=== PATIENT | male | born 1960 ===

== ENCOUNTER 2022-11-22 08:55 | Outpatient (REF) | payer MEDICAID, SELFPAY ==
--- NOTE | 2022-11-22 11:47 | MHC.AU.HFU ---
Hearing Instrument Follow-Up- Binaural Date of Visit: 11/22/22 Right Ear: Phonak Janet P70-DE, [id number], black Repair Warranty: 02/22/2025 Loss and Damage Warranty: 02/22/2025 Battery Size: Rechargeable Zinc Miner Blasting: TRS lock tubing Type of Mold: half shell ear mold Dispensed By: Steve Russo Date of Fittin11/25/2021 Left Ear: Phonak Janet P70-DE, [id number], black Repair Warranty: 02/22/2025 Loss and Damage Warranty: 02/22/2025 Battery Size: Rechargeable Zinc Miner Blasting: TRS lock tubing Type of Mold: half shell ear mold Dispensed By: Steve Russo Date of Fittin11/25/2021 Follow-Up Summary: Yinka is here for a hearing evaluation and hearing aid check, accompanied by his sister. He is transferring his care from Steve Russo. See audiogram for report. Yinka states the left side port of his hearing aid plastics supervisor broke 4 months ago so he has been unable to charge or wear his left hearing aid. Visual inspection of the plastics supervisor confirms the left port is broken. I was able to charge the left hearing aid with the right side port enough to reprogram both aids. Reprogrammed right and left hearing aids to today's audiogram. Called [facility] and ordered replacement plastics supervisor under warranty. I also re-tubed the patient's ear molds as they were hardened. Our clinic will call the patient to pick up man the replacement plastics supervisor when it arrives at our clinic- no appointment necessary, no charge, in warranty. I showed Yinka and his sister how to use the right side port to charge both right and left hearing aids. Yinka should do this until the new plastics supervisor arrives. He indicated understanding. Yinka will return in 6 months for a hearing aid check/cleaning per request. Annual audiogram/check in 1 year pending PCP order. Diagnosis Code(s): Primary Diagnosis: H90.3 Bilateral Sensorineural Hearing Loss Signature: Provider: Annamarie Ordoñez, CCC-A
== END 2022-11-22 08:56 | disposition home or self-care (01) ==
LOC: HO.SH 08:55
PROVIDERS: Visit Provider Physician Assistant
DX: Z01.118 Encounter for examination of ears and hearing with other abnormal findings (principal); Z46.1 Encounter for fitting and adjustment of hearing aid; H90.3 Sensorineural hearing loss, bilateral
CPT/HCPCS: 92557; 92593

== ENCOUNTER 2022-11-28 15:23 | Outpatient (REF) | payer MEDICAID, SELFPAY | END 2022-11-28 15:24 | disposition home or self-care (01) | LOC: HO.HAP 15:23 | PROVIDERS: Visit Provider Physician Assistant | DX: Z13.89 Encounter for screening for other disorder (principal) ==

== ENCOUNTER 2023-04-17 07:43 | Inpatient (IN) | payer MEDICAID, SELFPAY ==
[2023-04-17] VITALS (8 sets, daily range): BP systolic 90–112; BP diastolic 42–58; PULSE 80–96; RESP 16–22; TEMP 36–36.8; O2SAT 94–100; BMI 36.2
--- NOTE | ~2023-04-17 | CT_ITS ---
EXAMINATION: CT ABDOMEN AND PELVIS WITHOUT CONTRAST CLINICAL INFORMATION: Pain and distention COMPARISON: None available. TECHNIQUE: Multidetector volumetric imaging was performed from the superior aspect of the liver through the pubic symphysis. Sagittal and coronal reformatted images were obtained on the technologist's workstation. This CT examination was performed using dose optimization techniques as appropriate, variously including the following: *Automated exposure control *Adjustment of mA and/or kV according to patient size (this includes techniques or standardized protocols for targeted exams where dose is matched to indication/reason for exam; i.e. extremities or head) *Use of iterative reconstruction technique DLP: 918 mGy-cm FINDINGS: LUNG BASES: The visualized lung bases are unremarkable. LIVER, GALLBLADDER, AND BILIARY TREE: Liver is of low attenuation due to hepatic steatosis without hepatic masses or ductal dilatation seen. The gallbladder is unremarkable with no evidence of radiopaque gallstones, gallbladder wall thickening, or obvious pericholecystic inflammatory changes. PANCREAS: Unremarkable. SPLEEN: Spleen is enlarged measured 14.5 cm. ADRENAL GLANDS: Unremarkable. KIDNEYS AND URETERS: There are punctate calculi seen in the lower poles of both kidneys without hydroureteronephrosis seen. There is mild perinephric stranding on the right and the left kidney revealed features of atrophy. BLADDER: Small calculi seen in the urinary bladder on the right with the largest measured 0.5 cm. GASTROINTESTINAL TRACT: There is reflux in the esophagus. Stomach is decompressed. Colonic loops are decompressed. There are no bowel small bowel obstruction or dilatation. There is large amount of fatty tissues in the abdomen with mesenteric haziness, nonspecific there is no mesenteric masses. ABDOMINAL WALL: There is fat-containing moderate-sized umbilical hernia. LYMPH NODES: Normal. VASCULAR: There are atherosclerotic calcifications in not dilated abdominal aorta PELVIC VISCERA: There is prominence of the prostate, measured 5.6 x 6.1 x 4.1 cm with a volume measured approximately 70 ML OSSEOUS STRUCTURES: Unremarkable. CT/CT abdomen pelvis wo IV con IMPRESSION: 1. Hepatic steatosis and splenomegaly. 2. Bilateral nephrolithiasis without hydroureteronephrosis. Atrophic left kidney 3. Small calculi in the urinary bladder. 4. Prostatic hypertrophy. 5. Fat-containing umbilical hernia. 6. Nonspecific mesenteric haziness and large amount of mesenteric fat deposition. Fleischner guidelines were followed.
--- NOTE | 2023-04-17 07:50 | ECG_ITS ---
Test Reason : chest pain Blood Pressure : / mmHG Vent. Rate : 086 BPM Atrial Rate : 086 BPM P-R Int : 190 ms QRS Dur : 112 ms QT Int : 372 ms P-R-T Axes : 048 053 004 degrees QTc Int : 445 ms Normal sinus rhythm Nonspecific ST abnormality Abnormal ECG No previous ECGs available Referred By: Jason Barba Electronically Signed By:Juan May
--- OUTSIDE RECORDS SUMMARY | 2023-04-17 08:14 | XMS_ITS | Continuity of Care Document ---
Author Name Unknown Organization [facility] Address [address] [place] [phone]- Care Team Providers Care Regulatory Administrator Name Role Phone Estephania Roach Primary Care Physician Encounter [facility] Date(s): 04/25/22 - 05/25/22 [facility] [address] [place] [id number]- Allergies, Adverse Reactions, Alerts No Known Medication Allergies Medications amLODIPine 10 mg oral tablet 10 mg, 1, tablet, By Mouth, Daily, Refills 0, Maintenance, 12/14/21 14:44:00 EST, Partial fill uponpatient request if the prescription is for a schedule II opioid drug. Start Date: 12/14/21 Status: Ordered aspirin 81 mg oral delayed release tablet 81 mg, 1, tablet, By Mouth, Daily, Refills 0, Maintenance, 12/14/21 14:44:00 EST, Partial fill uponpatient request if the prescription is for a schedule II opioid drug. Start Date: 12/14/21 Status: Ordered atorvastatin 80 mg oral tablet 1 tablet = 80 mg, By Mouth, Daily, 0 Refills, Maintenance, 12/14/21 14:45:00 EST, Partial fill uponpatient request if the prescription is for a schedule II opioid drug. Start Date: 12/14/21 Status: Ordered meloxicam 15 mg oral tablet 1 tablet = 15 mg, By Mouth, Daily, 0 Refills, Maintenance, 12/14/21 14:45:00 EST, Partial fill uponpatient request if the prescription is for a schedule II opioid drug. Start Date: 12/14/21 Status: Ordered metFORMIN 500 mg oral tablet 1 tablet = 500 mg, By Mouth, 2 times a day, 0 Refills, Maintenance, 12/14/21 14:45:00 EST, Partial fill upon patient request if the prescription is for a schedule II opioid drug. Start Date: 12/14/21 Status: Ordered Problem List Condition Effective Dates Status Health Status Inform ant Obese class II(Confirmed) Active
--- OUTSIDE RECORDS SUMMARY | 2023-04-17 08:14 | XMS_ITS | Continuity of Care Document ---
Author Name Unknown Organization [facility] Address [address] [place] [phone]- Care Team Providers Care Asset Analyst Name Role Phone Estephania Roach Primary Care Physician Encounter [facility] Date(s): 05/31/22 - 06/30/22 [facility] [address] [place] [phone]- Attending Physician: Daisy Henriquez Admitting Physician: AdmDaisy obando Referring Physician: AdmtrDaisy Allergies, Adverse Reactions, Alerts No Known Medication [...]
--- OUTSIDE RECORDS SUMMARY | 2023-04-17 08:14 | XMS_ITS | Continuity of Care Document ---
Author Name Unknown Organization [facility] Address [address] [place] [phone]- Care Team Providers Care Grass Farm Laborer Name Role Phone Estephania Roach Primary Care Physician [facility] [id number] Date(s): 04/29/22 - 05/29/22 [facility] [address] [place] [id number] Attending Physician: Daisy Henriquez Admitting Physician: AdmDaisy [...]
--- OUTSIDE RECORDS SUMMARY | 2023-04-17 08:14 | XMS_ITS | Continuity of Care Document ---
Author Name Unknown Organization [facility] Address [address] [place] [phone]- Care Team Providers Care Wood And Wood Products Factory Worker Name Role Phone Estephania Roach Primary Care Physician Encounter [facility] [place] Date(s): 12/08/21 - 01/07/22 [facility] [address] [place] [phone]- Allergies, Adverse Reactions, Alerts No Known Medication [...]
--- OUTSIDE RECORDS SUMMARY | 2023-04-17 08:14 | XMS_ITS | Continuity of Care Document ---
Author Name Unknown Organization [facility] Address [address] [place] [phone]- Care Team Providers Care Pie Maker Name Role Phone Estephania Roach Primary Care Physician Encounter [facility] [place] [facility] Date(s): 05/31/22 - 06/07/22 [facility] [address] [place] [phone]- Attending Physician: Jean Bolden MD Admitting Physician: Jean Bolden MD Referring Physician: Estephania Roach Allergies, Adverse Reactions, Alerts No Known Medication [...] Status Inform ant Obese class II(Confirmed) Active Vital Signs Most recent to oldest [Reference Range]: 1 Height 172.00 cm (05/31/22 12:20 PM) Weight 109.32 kg (05/31/22 12:20 PM) Oxygen Saturation [94-100 %] 98 % (05/31/22 12:20 PM) Pulse Rate [55-90 bpm] 81 bpm (05/31/22 12:20 PM) Body Mass Index [18.5-24.99] 36.95 *>HHI* (05/31/22 12:20 PM) Blood Pressure [90-138/55-84 mm Hg] 142/ 68mm Hg *H* (05/31/22 12:20 PM) Mode of Delivery (Oxygen) Room air (05/31/22 12:20 PM) Blood pressure sites Arm, right (05/31/22 12:20 PM) Dry Weight 109.32 kg (05/31/22 12:20 PM) Weight Obtained Via Patient/family state d (05/31/22 12:20 PM) Dry Weight Obtained Via Patient/family s tated (05/31/22 12:20 PM)
--- OUTSIDE RECORDS SUMMARY | 2023-04-17 08:14 | XMS_ITS | Continuity of Care Document ---
Author Name Unknown Organization [facility] Address [address] [place] [address]- Care Team Providers Care Choral Director Name Role Phone Estephania Roach Primary Care Physician Encounter [facility] [place] Date(s): 02/28/22 - 03/30/22 [facility] [address] [place] [address]- Attending Physician: Daisy Henriquez Admitting Physician: Daisy Henriquez Referring Physician: AdmtrDaisy Allergies, Adverse Reactions, Alerts [...]
[2023-04-17 08:21] LABS: MANUAL DIFF FLAG NO
[2023-04-17 08:28] LABS: Prothrombin Time 11.9 SEC (10.0-13.1)
[2023-04-17 08:29] LABS: Basophils Percent Auto 0.1 % (0-2); Hematocrit 33.3 % (42.0-52.0); Imm Gran Abs Auto 0.21 X10*3/uL (0.00-0.03); Imm Gran Pct Auto 1.9 % (0.0-0.4); Lymphocytes Absolute Auto 0.5 X10*3/uL (1.2-4.9); Lymphocytes Percent Auto 4.5 % (20-40); Mean Corpuscular Hemoglobin 34.2 pg (27.0-33.0); Mean Corpuscular Volume 103.4 fL (80.0-98.0); Mean Platelet Volume 9.8 fL (9.4-12.4); Monocytes Absolute Auto 0.6 X10*3/uL (0.1-1.2); Monocytes Percent Auto 5.1 % (2-11); Neutrophils Absolute Auto 9.6 x10*3/uL (2.0-8.3); Neutrophils Percent Auto 88.4 % (45-73); Platelet Count 228 X10*3/uL (160-400); Red Blood Count 3.22 X10*6/uL (4.60-5.80); White Blood Count 10.9 X10*3/uL (4.8-10.8)
[2023-04-17 08:31] LABS: Partial Thromboplastin Time 26.6 SEC (26.0-36.4)
[2023-04-17] MEDS: Famotidine/PF 20 MG/2 ML VIAL IVPUSH (08:39)
[2023-04-17] MEDS: ondansetron HCL 4 MG/2 ML VIAL IVPUSH (08:39)
[2023-04-17] MEDS: 0.9 % Sodium Chloride 1,000 ML 999 ML IV ×2 (08:40→09:35)
[2023-04-17 08:55] LABS: Alanine Aminotransferase 49 U/L (0-40); Albumin Level 3.3 g/dL (3.5-5.0); Alkaline Phosphatase 77 U/L (39-117); Aspartate Amino Transferase 32 U/L (5-37); Bilirubin Total 0.4 mg/dL (0.0-1.0); Calcium 8.2 mg/dL (8.4-10.2); Ethanol < 10 mg/dL; Glucose Random 137 mg/dL (60-115); Total Protein 6.2 g/dL (6.5-8.0)
[2023-04-17 08:59] LABS: Ammonia 14 umol/L (13-55)
[2023-04-17 09:10] LABS: TSH reflex Free T4 1.38 uIU/mL (0.32-4.0)
[2023-04-17 09:11] LABS: Anion Gap 23 (12-20); Blood Urea Nitrogen > 125 mg/dL (9-16); Carbon Dioxide 10 mmol/L (22-29); Chloride 110 mmol/L (96-108); Creatinine Clr Calc Pharmacy 9.7; Estimated Glomerular Filt Rate 6; Potassium 6.4 mmol/L (3.3-5.1); Sodium 137 mmol/L (135-145)
[2023-04-17] MEDS: Albuterol Sulfate (0.083%) 2.5 MG/3 ML VIAL.NEB 10 MG INHALE (09:25)
[2023-04-17] MEDS: Sodium Bicarbonate 8.4% 50 MEQ/50 ML SYRINGE 100 MEQ IVPUSH (09:26)
[2023-04-17] MEDS: Calcium Gluconate/NaCl,Iso-Osm 1 GM/50 ML PLAST..BAG IV (09:27)
[2023-04-17] MEDS: Insulin Regular, Human 100 UNIT/ML 3 ML VIAL 10 UNIT IVPUSH (09:27)
--- NOTE | 2023-04-17 10:11 | ED.GENADULT ---
HPI - General Adult General Chief complaint: Nausea/Vomiting/Diarrhea Stated complaint: WEAK,DIARRHEA X10 DAYS SINCE VACATION PER EMS Time Seen by Provider: 04/17/23 07:45 Source: patient and EMS Mode of arrival: EMS Limitations: no limitations History of Present Illness HPI narrative: 63-year-old male with history of diabetes presents with nausea, vomiting and diarrhea for period of 10 days. Patient recently returned from a trip to [place]. Over the course of his trip, he has not had any oral intake, he has had nausea, vomiting diarrhea. He denies any significant abdominal pain. Denies any fevers or chills. Describes symptoms as severe. Patient right back last night. called EMS today. Patient feels generally weak and fatigued. There is no clear relieving or exacerbating features. Patient has never had symptoms like this before. Related Data Home Medications Medication Instructions Recorded Confirmed amlodipine 10 mg tablet 10 mg PO DAILY 04/17/23 04/17/23 aspirin 81 mg tablet,delayed 81 mg PO DAILY 04/17/23 04/17/23 release atorvastatin 80 mg tablet 80 mg PO DAILY 04/17/23 04/17/23 folic acid 1 mg tablet 2 mg PO DAILY 04/17/23 04/17/23 hydrochlorothiazide 25 mg tablet 25 mg PO DAILY 04/17/23 04/17/23 hydroxychloroquine 200 mg tablet 400 mg PO DAILY 04/17/23 04/17/23 lisinopril 20 mg tablet 20 mg PO DAILY 04/17/23 04/17/23 metformin 1,000 mg tablet 1,000 mg PO BID 04/17/23 04/17/23 methotrexate sodium 2.5 mg tablet 17.5 mg PO MO@1900 04/17/23 04/17/23 Allergies Allergy/AdvReac Type Severity Reaction Status Date / Time No Known Allergies Allergy Verified 04/17/23 08:23 Review of Systems Review of Systems: CONSTITUTIONAL: Denies weight loss, fever and chills. HEENT: Denies changes in vision and hearing. RESPIRATORY: Denies SOB and cough. CV: Denies palpitations no CP. GI: Positive abdominal pain, nausea, vomiting and diarrhea. : Denies dysuria and urinary frequency. MSK: Denies myalgia and joint pain. SKIN: Denies rash and pruritus. NEUROLOGICAL: Denies headache and syncope. PSYCHIATRIC: Denies recent changes in mood. Denies anxiety and depression. All other ROS are negative [facility] Social History Social History Advance Directives: No Advance Directives Information Provided: No Physical Exam ED Vital Signs: Vital Signs - 24 hr 04/17/23 07:52 04/17/23 09:33 04/17/23 10:00 Temperature 98.3 F Pulse Rate 87 81 89 Respiratory Rate 16 18 22 H Blood Pressure 97/48 L 104/42 L Pulse Oximetry 94 Oxygen Delivery Method Room Air Room Air BMI result Body Mass Index 36.2 GEN: Well developed, no acute distress, alert, oriented HEENT: Normocephalic, atraumatic, normal external ears, nose appears normal, no oropharyngeal edema or exudates Eyes: Normal to appearance Neck: Supple, no lymphadenopathy Respiratory: Talks in complete sentences, no respiratory distress, clear to auscultation bilaterally Cardiovascular: Regular rate and rhythm, no murmurs rubs or gallops Abdomen: Soft, nontender, nondistended, no guarding, no rebound Back: No CVA tenderness Extremities: No clubbing cyanosis or edema Neurologic: No focal neurologic deficits, cranial nerves 2-12 intact, strength is 5/5 bilaterally, tremulous Skin: No rash Course Course Course Narrative: 63-year-old male with history of diabetes presents with nausea, vomiting and diarrhea. Labs this point of demonstrated acute kidney injury with hyperkalemia. Patient is being fluid resuscitated. Patient is likely prerenal based on his BUN to creatinine ratio. In addition, for the hyperkalemia, or treating with sodium bicarbonate, insulin, dextrose, albuterol, calcium gluconate. I am contacting Nephrology at this point. Patient has CT scan of the abdomen. His abdomen was not significantly tender but given his presentation, would like to rule out other etiologies for his renal failure. Patient will obviously need admission to the hospital. Reevaluation(s) Reevaluation #1: Spoke with Dr. Portillo, nephrology. Patient is stable. Patient likely be admitted to the telemetry unit. We are waiting on CT scan results. Appears his left kidney is atrophic. But there are no other acute abdominal findings on preliminary review by myself. I spoke with patient's sister. She reports history of CVA and some delayed thought. We do not have D50. Patient will be switched to D10 at 150 mL bolus prior to insulin administration for hyperkalemia. [facility] Time: 10:34 Reevaluation #2: Spoke with Dr. Portillo who evaluated the patient. Patient will have a lactic acid repeat metabolic panel. Patient may require emergent dialysis especially since he is on metformin. Will contact the hospitalist for admission. Time: 12:46 Medications Administered Generic Name Dose Route Start Last Admin Trade Name Freq PRN Reason Stop Dose Admin Sodium Bicarbonate 150 meq/ 1,000 mls @ 50 mls/hr 04/17/23 10:30 04/17/23 11:11 Dextrose IV 50 mls/hr .Q20H JAIDEN Administration Dextrose 1,000 mls @ 250 mls/hr 04/17/23 10:32 04/17/23 10:42 D10 IV 04/17/23 14:31 250 mls/hr .Q4H ONE Administration Discontinued Medications Generic Name Dose Route Start Last Admin Trade Name Freq PRN Reason Stop Dose Admin Albuterol Sulfate 10 mg 04/17/23 09:10 04/17/23 09:25 Albuterol Sulfate (0.083%) 2.5 Mg/3 Ml Vial.Neb INHALE 04/17/23 09:11 10 mg ONCE ONE Administration Dextrose 50 gm 04/17/23 09:11 04/17/23 10:23 Dextrose 25 % 2.5 Gm/10 Ml Syringe IVPUSH 04/17/23 09:12 Not Given ONCE ONE Famotidine 20 mg 04/17/23 07:50 04/17/23 08:39 Famotidine/Pf 20 Mg/2 Ml Vial IVPUSH 04/17/23 07:51 20 mg ONCE ONE Administration Sodium Chloride 1,000 mls @ 999 mls/hr 04/17/23 08:00 04/17/23 10:27 Ns IV 04/17/23 09:00 Infused .Q1H1M JAIDEN Infusion Calcium Gluconate 1 gm in 50 mls @ 50 mls/hr 04/17/23 09:10 04/17/23 10:27 Calcium Gluconate IV 04/17/23 10:09 Infused ONCE ONE Infusion Sodium Chloride 1,000 mls @ 999 mls/hr 04/17/23 09:15 04/17/23 11:44 Ns IV 04/17/23 10:15 Infused .Q1H1M JAIDEN Infusion Insulin Human Regular 10 unit 04/17/23 09:10 04/17/23 09:27 Insulin Regular, Human 100 Unit/Ml 3 Ml Vial IVPUSH 04/17/23 09:11 10 unit ONCE ONE Administration Ondansetron HCl 4 mg 04/17/23 07:50 04/17/23 08:39 Ondansetron Hcl 4 Mg/2 Ml Vial IVPUSH 04/17/23 07:51 4 mg ONCE ONE Administration Sodium Bicarbonate 100 meq 04/17/23 09:15 04/17/23 10:24 Sodium Bicarbonate 8.4% 50 Meq/50 Ml Syringe IVPUSH 04/17/23 09:21 Not Given Q5M JAIDEN Sodium Zirconium Cyclosilicate 10 gm 04/17/23 10:22 04/17/23 10:41 Sodium Zirconium Cyclosilicate 10 Gm Powd.Pack PO 04/17/23 10:23 10 gm ONCE ONE Administration Medical Decision Making Medical Decision Making MDM Narrative: 63-year-old male with diabetes presents with nausea, vomiting, diarrhea. Symptoms several days has had poor oral intake. Patient appears slightly confused but alert and oriented. Tremulousness. Abdomen was very mildly tender but no rebound or guarding. Will provide the patient with IV fluids, antiemetics at this point. Will add like to get a stool sample if he needs to pass stool. Would like to rule out significant electrolyte abnormality. Differential diagnosis could include gastroenteritis, dehydration, electrolyte abnormality, renal dysfunction, dysmotility, IBS, IBD. Differential Diagnosis Differential Diagnoses: The differential diagnosis associated with the presentation includes (See above) Admission/Observation Consideration of admission/observation: Escalation of care including admission/observation considered Consult Healthcare Provider Management of the patient was discussed with: Residential Solar Consultant Lab Data [facility] Lab Attestation statement: I reviewed the patient's lab results. 04/17/23 08:16 04/17/23 08:16 Labs: Lab Results 04/17/23 04/17/23 04/17/23 Range/Units 08:16 08:16 08:16 WBC 10.9 H (4.8-10.8) X10*3/uL RBC 3.22 L (4.60-5.80) X10*6/uL Hgb 11.0 L (14.0-18.0) g/dl Hct 33.3 L (42.0-52.0) % MCV 103.4 H (80.0-98.0) fL MCH 34.2 H (27.0-33.0) pg MCHC 33.0 (31.0-36.0) g/dl RDW 13.0 (11.0-16.0) % Plt Count 228 (160-400) X10*3/uL MPV 9.8 (9.4-12.4) fL Immature Gran % (Auto) 1.9 H (0.0-0.4) % Neut % (Auto) 88.4 H (45-73) % Lymph % (Auto) 4.5 L (20-40) % [place] % (Auto) 5.1 (2-11) % Eos % (Auto) 0.0 (0-4) % Baso % (Auto) 0.1 (0-2) % Lymph # (Auto) 0.5 L (1.2-4.9) X10*3/uL [place] # (Auto) 0.6 (0.1-1.2) X10*3/uL Eos # (Auto) 0.0 (0.0-0.4) X10*3/uL Baso # (Auto) 0.0 (0.0-0.2) X10*3/uL Abs Immat Gran (auto) 0.21 H (0.00-0.03) X10*3/uL Absolute Neuts (auto) 9.6 H (2.0-8.3) x10*3/uL Absolute Nucleated RBC 0.000 (0.0-0.012) X10*3/uL Nucleated RBC % (auto) 0.0 (0.0-0.2) /100WBC PT (10.0-13.1) SEC INR (0.9-1.1) APTT (26.0-36.4) SEC Sodium 137 (135-145) mmol/L Potassium 6.4 H* (3.3-5.1) mmol/L Chloride 110 H (96-108) mmol/L Carbon Dioxide 10 L* (22-29) mmol/L Anion Gap 23 H (12-20) BUN > 125 H (9-16) mg/dL Creatinine 9.40 H* (0.5-1.4) mg/dL Estim Creat Clear Calc 9.7 Estimated GFR 6 Random Glucose 137 H (60-115) mg/dL Lactic Acid (0.5-2.0) mmol/L Calcium 8.2 L (8.4-10.2) mg/dL Total Bilirubin 0.4 (0.0-1.0) mg/dL AST 32 (5-37) U/L ALT 49 H (0-40) U/L Alkaline Phosphatase 77 (39-117) U/L Ammonia Cancelled Total Protein 6.2 L (6.5-8.0) g/dL Albumin 3.3 L (3.5-5.0) g/dL TSH (0.32-4.0) uIU/mL Ethyl Alcohol < 10 mg/dL 04/17/23 04/17/23 04/17/23 Range/Units 08:16 08:16 08:37 WBC (4.8-10.8) X10*3/uL RBC (4.60-5.80) X10*6/uL Hgb (14.0-18.0) g/dl Hct (42.0-52.0) % MCV (80.0-98.0) fL MCH (27.0-33.0) pg MCHC (31.0-36.0) g/dl RDW (11.0-16.0) % Plt Count (160-400) X10*3/uL MPV (9.4-12.4) fL Immature Gran % (Auto) (0.0-0.4) % Neut % (Auto) (45-73) % Lymph % (Auto) (20-40) % [place] % (Auto) (2-11) % Eos % (Auto) (0-4) % Baso % (Auto) (0-2) % Lymph # (Auto) (1.2-4.9) X10*3/uL [place] # (Auto) (0.1-1.2) X10*3/uL Eos # (Auto) (0.0-0.4) X10*3/uL Baso # (Auto) (0.0-0.2) X10*3/uL Abs Immat Gran (auto) (0.00-0.03) X10*3/uL Absolute Neuts (auto) (2.0-8.3) x10*3/uL Absolute Nucleated RBC (0.0-0.012) X10*3/uL Nucleated RBC % (auto) (0.0-0.2) /100WBC PT 11.9 (10.0-13.1) SEC INR 1.0 (0.9-1.1) APTT 26.6 (26.0-36.4) SEC Sodium (135-145) mmol/L Potassium (3.3-5.1) mmol/L Chloride (96-108) mmol/L Carbon Dioxide (22-29) mmol/L Anion Gap (12-20) BUN (9-16) mg/dL Creatinine (0.5-1.4) mg/dL Estim Creat Clear Calc Estimated GFR Random Glucose (60-115) mg/dL Lactic Acid (0.5-2.0) mmol/L Calcium (8.4-10.2) mg/dL Total Bilirubin (0.0-1.0) mg/dL AST (5-37) U/L ALT (0-40) U/L Alkaline Phosphatase (39-117) U/L Ammonia 14 Total Protein (6.5-8.0) g/dL Albumin (3.5-5.0) g/dL TSH 1.38 (0.32-4.0) uIU/mL Ethyl Alcohol mg/dL 04/17/23 Range/Units 12:49 WBC (4.8-10.8) X10*3/uL RBC (4.60-5.80) X10*6/uL Hgb (14.0-18.0) g/dl Hct (42.0-52.0) % MCV (80.0-98.0) fL MCH (27.0-33.0) pg MCHC (31.0-36.0) g/dl RDW (11.0-16.0) % Plt Count (160-400) X10*3/uL MPV (9.4-12.4) fL Immature Gran % (Auto) (0.0-0.4) % Neut % (Auto) (45-73) % Lymph % (Auto) (20-40) % [place] % (Auto) (2-11) % Eos % (Auto) (0-4) % Baso % (Auto) (0-2) % Lymph # (Auto) (1.2-4.9) X10*3/uL [place] # (Auto) (0.1-1.2) X10*3/uL Eos # (Auto) (0.0-0.4) X10*3/uL Baso # (Auto) (0.0-0.2) X10*3/uL Abs Immat Gran (auto) (0.00-0.03) X10*3/uL Absolute Neuts (auto) (2.0-8.3) x10*3/uL Absolute Nucleated RBC (0.0-0.012) X10*3/uL Nucleated RBC % (auto) (0.0-0.2) /100WBC PT (10.0-13.1) SEC INR (0.9-1.1) APTT (26.0-36.4) SEC Sodium (135-145) mmol/L Potassium (3.3-5.1) mmol/L Chloride (96-108) mmol/L Carbon Dioxide (22-29) mmol/L Anion Gap (12-20) BUN (9-16) mg/dL Creatinine (0.5-1.4) mg/dL Estim Creat Clear Calc Estimated GFR Random Glucose (60-115) mg/dL Lactic Acid 0.7 (0.5-2.0) mmol/L Calcium (8.4-10.2) mg/dL Total Bilirubin (0.0-1.0) mg/dL AST (5-37) U/L ALT (0-40) U/L Alkaline Phosphatase (39-117) U/L Ammonia Total Protein (6.5-8.0) g/dL Albumin (3.5-5.0) g/dL TSH (0.32-4.0) uIU/mL Ethyl Alcohol mg/dL Independent Interpretation I performed an independent interpretation of an: EKG (Normal sinus rhythm heart rate 86, no acute ST elevations depressions, nonspecific T-wave abnormality) and CT Scan Independent Historian Clinical information obtained from an independent historian. History obtained from or confirmed by: EMS and Other (Sister) Tests considered The following testing was considered but not selected: Ultrasound kidneys Prescription Management I considered prescription management with: Antibiotic Chronic Conditions Patient?s care impacted by: Diabetes and Hypertension Critical Care Time Critical Care Time Critical Care Time: Yes Total Critical Care Time: 65 Attestation: Approximately 65 minutes of critical care time performed frequent bedside assessments, reassessments, management of acute potentially life-threatening medical conditions, documentation, review medical data, consultation with other providers all outside medical procedures. Discharge Plan Discharge Clinical Impression: GERRY (acute kidney injury), Acute hyperkalemia, Nausea vomiting and diarrhea, Anemia, macrocytic Patient Disposition: Admitted As Inpatient
--- NOTE | 2023-04-17 10:24 | PHA.MEDREC ---
Pharmacy Consult ? Medication Reconciliation Pharmacy has completed the medication reconciliation. spoke with patient's sister, Nayana. She had a list and confirmed all of his medications. She reported that the methotrexate is given to him on Monday's after dinner (not given today). She also mentioned that the lisinopril got decreased to 20mg.
[2023-04-17] MEDS: Sodium Zirconium Cyclosilicate 10 GM POWD.PACK PO (10:41)
[2023-04-17] MEDS: Dextrose 10 % 1,000 ML 250 ML IV (10:42)
[2023-04-17] MEDS: Sodium Bicarbonate 8.4% 150 MEQ in Dextrose 5 % 850 ML 50 MEQ IV (11:11)
--- NOTE | 2023-04-17 12:15 | MHC.CM.ED ---
Received notification from Kristen of registration that patient wanted to complete a HCP. T/W attempted to meet with patient to complete this. Patient currently sleeping. Will attempt to meet again. Continue to monitor for d/c needs.
--- NOTE | 2023-04-17 12:55 | PC.NURSE ---
clemens catheter in place. clear yellow urine draining. NSR on the monitor. patient denies abd pain at this time. call anderson placed within reach. wctm.
[2023-04-17 13:14] LABS: Lactic Acid 0.7 mmol/L (0.5-2.0)
[2023-04-17 13:54] LABS: Osmolality, Serum 339 mosm/kg (281-305)
[2023-04-17 14:11] LABS: Anion Gap 20 (12-20); Blood Urea Nitrogen 157 mg/dL (9-16); Calcium 7.5 mg/dL (8.4-10.2); Carbon Dioxide 12 mmol/L (22-29); Chloride 113 mmol/L (96-108); Creatinine Clr Calc Pharmacy 10.6; Estimated Glomerular Filt Rate 6; Glucose Random 116 mg/dL (60-115); Magnesium 1.8 mg/dL (1.6-2.6); Potassium 5.3 mmol/L (3.3-5.1); Sodium 140 mmol/L (135-145)
[2023-04-17 14:16] LABS: Appearance Urine Cloudy; Color Urine Yellow; Glucose Urine UA Negative (Negative); Leukocyte Esterase Urine Moderate (2+) (Negative); Nitrite Urine Negative (Negative); Specific Gravity - Urine 1.015 (1.005-1.025); UMIC TRIGGER UACC YES; Urine Blood Moderate (2+) (Negative); Urine Ketones Negative (Negative); Urine Protein 30 (1+) mg/dL (Neg-Trace)
[2023-04-17 14:25] LABS: Bacteria Urine 1+ (None Seen); UACC Culture Trigger YES; WBC Urine 21-50 /HPF (0-5)
--- NOTE | 2023-04-17 14:25 | PM.IMHP ---
History of Present Illness Date of Service: 04/17/23 Attending physician on admission: Jaime Simeon Chief Complaint: anorexia, diarrhea 63 year old male with history of RA on hydroxychloroquine and methotrexate, non insulin dependent type 2 diabetes, htn, hld, and history CVA presented to ED for evaluation of nausea, diarrhea and anorexia ongoing for about 10 days. Pt was recently in [place] for 7 days followed by a cruise around [place] and returned last night. Was seen on the ship was was told he had sea sickness . Has not been able to tolerate much orally since symptom onset. Has no vomiting but does endorse dry heaves. Admits to copious diarrhea now with BRBPR. No melena. There is diffuse abdominal discomfort. No fevers or chills. None of those who were with him on the trip have similar symptoms. On arrival, blood pressures soft, vitals otherwise stable. Ny hypotension. Mild leukocytosis 10.9. H/H 11.0/33.3%. Creat 9.40, DUN >125, K 6.4, Cl 110, bicarb 10, AG 123. Treated with IV bicarb and 2L IVF. He also received 10 units regular insulin with D10, calcium gluconate, and albuterol for the hyperkalemia. Repeat chemistry showed improvement in creat to 8.53, BUN still elevated at 157, K improved to 5.3, hyperchloremic at 113, Na 140. AG closed. CT abd/pelvis showing hepatic steatosis and splenomegaly, bilateral nephrolithiasis without hydroureternephrosis and atrophic left kidney and nonspecific mesenteric haziness and large amt mesenteric fat disposition among other chronic findings. Initially concern for metformin poisoning per nephrology, but lactic acid 0.7. Review of Systems Review of Systems: General: No fevers, malaise, unintentional weight loss HEENT: No blurred vision, diplopia. No sore throat, nasal congestion, rhinorrhea, sinus pain, ear pain Cardiovascular: No chest pain, palpitations, or leg edema Respiratory: No shortness of breath, wheezing, cough GI: +abd pain, +n/d, +dry heaves, +BRBPR. No constipation, melena : No dysuria, hematuria, increased urinary frequency, decreased urinary output MSK: No myalgia, back pain Neuro: No headaches, weakness, paresthesias Skin: No rashes or lesions [facility] Medical History HLD (hyperlipidemia) HTN (hypertension) Rheumatoid arthritis Type 2 diabetes mellitus Social History (Updated 04/17/23 @ 14:48 by VIRGINIA Wong) Household Members: Family Household Members Other:: LIVES WITH SISTER Housing: House Do you presently have visiting nurse or other home services: No (pt states sister helps him) Alcohol intake: never Patient Tobacco Use Status: Never used Tobacco Smoked in Last 30 Days: No Use of substances other than those prescribed or required for medical reasons: No Currently Displaying Signs/Symptoms of Drug Intoxication Withdrawal: No Have you been hit, kicked, punched, or otherwise hurt by someone within the past year? If so, by whom?: No Do you feel safe in your current relationship?: No Current Relationship Is there a partner from a previous relationship who is making you feel unsafe now?: No Are you made to feel afraid or neglected: No Advance Directives: No Advance Directives Information Provided: No Do you have thoughts of harming others: None Do you have a plan to hurt others: No Plan Recently lost weight without trying: No Nutrition Risks: No Nutritional Risk service: No Current occupational status: retired Meds Allergies Allergy/AdvReac Type Severity Reaction Status Date / Time No Known Allergies Allergy Verified 04/17/23 08:23 Active Medications: Current Medications Acetaminophen (Acetaminophen 325 Mg Tablet) 650 mg PO Q6H PRN PRN Reason: Pain, Mild (Pain Scale 1-3) Aspirin (Aspirin Enteric Coated 81 Mg Tablet.Dr) 81 mg PO DAILY [facility] Atorvastatin Calcium (Atorvastatin Calcium 80 Mg Tablet) 80 mg PO DAILY [facility] Docusate Sodium (Docusate Sodium 100 Mg Capsule) 100 mg PO DAILY PRN PRN Reason: Constipation Folic Acid (Folic Acid 1 Mg Tablet) 2 mg PO DAILY [facility] Heparin Sodium (Porcine) (Heparin Sodium,Porcine 5,000 Unit/Ml Vial) 5,000 unit SUBCUT Q12H [facility] Hydroxychloroquine Sulfate (Hydroxychloroquine Sulfate 200 Mg Tablet) 400 mg PO DAILY [facility] Sodium Bicarbonate 150 meq/ (Dextrose) 1,000 mls @ 50 mls/hr IV .Q20H JAIDEN Last Admin: 04/17/23 11:11 Dose: 50 mls/hr Dextrose (D10) 1,000 mls @ 250 mls/hr IV .Q4H ONE Stop: 04/17/23 14:31 Last Admin: 04/17/23 10:42 Dose: 250 mls/hr Sodium Chloride (Ns) 1,000 mls @ 125 mls/hr IVCONT .Q8H JAIDEN Sodium Chloride (Ns) 1,000 mls @ 999 mls/hr IV .Q1H1M JAIDEN Stop: 04/17/23 15:15 Ondansetron HCl (Ondansetron Hcl 4 Mg/2 Ml Vial) 4 mg IVPUSH Q8H PRN PRN Reason: Nausea and Vomiting Pharmacy Consult (Consult Rx Perform Med Rec) 1 each MISCELLANE ONCE PRN PRN Reason: Consult order Sodium Chloride (0.9 % Sodium Chloride Flush 3 Ml Syringe) 3 ml IVFLUSH QSHIFT [facility] Home Medications Medication Instructions Recorded Confirmed Last Taken Type amlodipine 10 mg tablet 10 mg PO DAILY 04/17/23 04/17/23 04/16/23 History aspirin 81 mg tablet,delayed 81 mg PO DAILY 04/17/23 04/17/23 04/16/23 History release atorvastatin 80 mg tablet 80 mg PO DAILY 04/17/23 04/17/23 04/16/23 History folic acid 1 mg tablet 2 mg PO DAILY 04/17/23 04/17/23 04/16/23 History hydrochlorothiazide 25 mg tablet 25 mg PO DAILY 04/17/23 04/17/23 04/16/23 History hydroxychloroquine 200 mg tablet 400 mg PO DAILY 04/17/23 04/17/23 04/16/23 History lisinopril 20 mg tablet 20 mg PO DAILY 04/17/23 04/17/23 04/16/23 History metformin 1,000 mg tablet 1,000 mg PO BID 04/17/23 04/17/23 04/16/23 History methotrexate sodium 2.5 mg tablet 17.5 mg PO MO@1900 04/17/23 04/17/23 Unknown History Physical Exam Vital Signs and Narrative: Vital Signs: Last Vital Signs Temp 98.3 F 04/17/23 07:52 Pulse 96 04/17/23 14:00 Resp 18 04/17/23 14:00 BP 95/45 L 04/17/23 14:00 Pulse Ox 94 04/17/23 14:00 O2 Del Method Room Air 04/17/23 14:00 BMI result Body Mass Index 36.2 Constitutional - Awake and Alert, No apparent distress Eyes - PERRLA, EOMI Cardiovascular - S1S2, RRR, No edema Respiratory - Normal lung expansion, Normal respiratory effort, No respiratory distress, CTA bilaterally Gastrointestinal - small reducible umbilical hernia. llq ttp without guarding or rebound. ND; +BS - No CVA tenderness, clemens catheter in place draining yellow urine Extremities - no calf tenderness bilaterally, no swelling Musculoskeletal - Normal inspection, normal ROM Skin - Warm/Dry Neurological - Alert & oriented x3 but slightly confused, CN II-XII in tact, 5/5 strength BUE and BLE, tremulous Psychological - Appropriate affect Results Labs 04/17/23 08:16 04/17/23 12:49 Labs: Laboratory Results - last 24 hr 04/17/23 04/17/23 04/17/23 08:16 08:16 08:16 MCV 103.4 H MCH 34.2 H MCHC 33.0 RDW 13.0 Plt Count 228 MPV 9.8 Immature Gran % (Auto) 1.9 H Neut % (Auto) 88.4 H Lymph % (Auto) 4.5 L [place] % (Auto) 5.1 Eos % (Auto) 0.0 Baso % (Auto) 0.1 Lymph # (Auto) 0.5 L [place] # (Auto) 0.6 Eos # (Auto) 0.0 Baso # (Auto) 0.0 Abs Immat Gran (auto) 0.21 H Absolute Neuts (auto) 9.6 H Absolute Nucleated RBC 0.000 Nucleated RBC % (auto) 0.0 PT INR APTT Anion Gap 23 H Estim Creat Clear Calc 9.7 Estimated GFR 6 Random Glucose 137 H Osmolality Lactic Acid Calcium 8.2 L Magnesium Total Bilirubin 0.4 AST 32 ALT 49 H Alkaline Phosphatase 77 Ammonia Cancelled Total Protein 6.2 L Albumin 3.3 L TSH Urine Color Urine Appearance Urine pH Ur Specific [place] Urine Protein Urine Glucose (UA) Urine Ketones Urine Blood Urine Nitrite Ur Leukocyte Esterase Ethyl Alcohol < 10 04/17/23 04/17/23 04/17/23 08:16 08:16 08:37 MCV MCH MCHC RDW Plt Count MPV Immature Gran % (Auto) Neut % (Auto) Lymph % (Auto) [place] % (Auto) Eos % (Auto) Baso % (Auto) Lymph # (Auto) [place] # (Auto) Eos # (Auto) Baso # (Auto) Abs Immat Gran (auto) Absolute Neuts (auto) Absolute Nucleated RBC Nucleated RBC % (auto) PT 11.9 INR 1.0 APTT 26.6 Anion Gap Estim Creat Clear Calc Estimated GFR Random Glucose Osmolality Lactic Acid Calcium Magnesium Total Bilirubin AST ALT Alkaline Phosphatase Ammonia 14 Total Protein Albumin TSH 1.38 Urine Color Urine Appearance Urine pH Ur Specific [place] Urine Protein Urine Glucose (UA) Urine Ketones Urine Blood Urine Nitrite Ur Leukocyte Esterase Ethyl Alcohol 04/17/23 04/17/23 04/17/23 12:49 12:49 12:49 MCV MCH MCHC RDW Plt Count MPV Immature Gran % (Auto) Neut % (Auto) Lymph % (Auto) [place] % (Auto) Eos % (Auto) Baso % (Auto) Lymph # (Auto) [place] # (Auto) Eos # (Auto) Baso # (Auto) Abs Immat Gran (auto) Absolute Neuts (auto) Absolute Nucleated RBC Nucleated RBC % (auto) PT INR APTT Anion Gap 20 Estim Creat Clear Calc 10.6 Estimated GFR 6 Random Glucose 116 H Osmolality 339 H Lactic Acid 0.7 Calcium 7.5 L D Magnesium 1.8 Total Bilirubin AST ALT Alkaline Phosphatase Ammonia Total Protein Albumin TSH Urine Color Urine Appearance Urine pH Ur Specific [place] Urine Protein Urine Glucose (UA) Urine Ketones Urine Blood Urine Nitrite Ur Leukocyte Esterase Ethyl Alcohol 04/17/23 14:03 MCV MCH MCHC RDW Plt Count MPV Immature Gran % (Auto) Neut % (Auto) Lymph % (Auto) [place] % (Auto) Eos % (Auto) Baso % (Auto) Lymph # (Auto) [place] # (Auto) Eos # (Auto) Baso # (Auto) Abs Immat Gran (auto) Absolute Neuts (auto) Absolute Nucleated RBC Nucleated RBC % (auto) PT INR APTT Anion Gap Estim Creat Clear Calc Estimated GFR Random Glucose Osmolality Lactic Acid Calcium Magnesium Total Bilirubin AST ALT Alkaline Phosphatase Ammonia Total Protein Albumin TSH Urine Color Yellow Urine Appearance Cloudy Urine pH 5.0 Ur Specific [place] 1.015 Urine Protein 30 (1+) H Urine Glucose (UA) Negative Urine Ketones Negative Urine Blood Moderate (2+) H Urine Nitrite Negative Ur Leukocyte Esterase Moderate (2+) H Ethyl Alcohol Imaging Radiologist's Impressions: Impressions Abdomen/Pelvis CT 04/17/23 10:14 IMPRESSION: 1. Hepatic steatosis and splenomegaly. 2. Bilateral nephrolithiasis without hydroureteronephrosis. Atrophic left kidney 3. Small calculi in the urinary bladder. 4. Prostatic hypertrophy. 5. Fat-containing umbilical hernia. 6. Nonspecific mesenteric haziness and large amount of mesenteric fat deposition. Fleischner guidelines were followed. Assessment and Plan (1) GERRY (acute kidney injury): Status: Acute (2) Acute hyperkalemia: Status: Acute (3) Nausea vomiting and diarrhea: Status: Acute Plan 63 year old male with history of RA on hydroxychloroquine and methotrexate, non insulin dependent type 2 diabetes, htn, hld, and history CVA admitted for GERRY with uremia. #Acute kidney injury with uremia- likely related to hypovolemia, complicated by continued metforming, lisinopril,, and hctz use -Creat 9.40 improved to 8.53 with IVF -Lactic acid 0.7, no metformin poisoning -Continue aggressive IVF with LR -Clemens catheter -Nephrology consult placed. No emergent HD at this time per nephro -Hold nephrotoxins (metformin, lisinopril, hctz, methotrexate) -Follow BMP and divalents #Acute toxic metabolic encephalopathy -due to uremia as above -continue aggressive IVF -Monitor mentation #Acute hyperkalemia -Initially 6.4, improved to 5.3 with 10 units insulin with D10, albuterol, IVF, and lokelma -No peaked t waves on EKG. Given calcium gluconate -Continue aggressive IVF -Follow lytes -Monitor on telemetry #Acute metabolic acidosis -likely related to uremia -Started don bicarb drip, anion gap now closed with improvement in bicarb -Continue IVF #Acute diarrhea -?infectious etiology given symptoms started on cruise ship -GI panel and CDiff ordered #Acute blood loss anemia- likely hemorrhoidal bleed secondary to diarrhea -likely has baseline chronic macrocytic anemia. Folic acid and vitamin B12 levels pending -H/H above transfusion threshold -follow CBC -consider GI consult if indicated #RA -hold methotrexate, continue hydroxychloroquine # hypertension-blood pressure is soft due to hypovolemia -continue aggressive IV hydration -hold amlodipine, lisinopril and hydrochlorothiazide in setting of soft BP and GERRY DVT prophylaxis-heparin Full code Patient requires inpatient stay at least 2 midnights for management of acute kidney injury with uremia secondary to suspected infectious diarrhea requiring aggressive IV hydration, expert consultation, and close monitoring as patient may need dialysis if no improvement Time Spent With Patient Time: Total time managing care of this patient today ____ minutes. Quality Stroke Does the patient have a stroke diagnosis?: No VTE Prior VTE?: No VTE Risk Level:: Medical - moderate - high VTE Device Contraindication: Treatment Not Indicated VTE Drug Contraindication: N/A - Med Ordered
[2023-04-17] MEDS: Heparin Sodium,Porcine 5,000 UNIT/ML VIAL 5000 UNIT SUBCUT (14:58)
[2023-04-17] MEDS: Lactated Ringers 1,000 ML 999 ML IV (14:59)
[2023-04-17 16:06] LABS: Folate > 20.0 ng/mL (> or = 4.0); Vitamin B12 736 pg/mL (200-900)
[2023-04-17] MEDS: Lactated Ringers 1,000 ML 125 ML IVCONT (16:49)
[2023-04-17 18:16] LABS: Glucose, Whole Blood 111 mg/dL (60-115)
--- NOTE | 2023-04-17 20:25 | MHC.CM.PN ---
Addendum entered by Lorena Gilbert 04/17/23 21:39: CM attempted to meet with patient, but patient is sleeping soundly. Will continue to monitor for d/c planning and assess when patient wakes. Original Note: CM attempted to meet with admitted patient with regards to discharge planning and completion of HCP. Pt is sleeping soundly and family is not present. Pt remains in overflow, as he does not yet have a bed assignment. CM will attempt to meet with patient when he wakes.
[2023-04-17 21:20] LABS: Glucose, Whole Blood 108 mg/dL (60-115)
[2023-04-18] MEDS: Lactated Ringers 1,000 ML 125 ML IVCONT ×2 (00:51→09:50)
[2023-04-18 01:17] VITALS: BMI 38.9
[2023-04-18] MEDS: Heparin Sodium,Porcine 5,000 UNIT/ML VIAL 5000 UNIT SUBCUT ×2 (01:24→15:13)
[2023-04-18] MEDS: Acetaminophen 325 MG TABLET 650 MG PO (01:27)
--- NOTE | 2023-04-18 02:25 | CONS_ITS ---
DATE OF SERVICE: REASON FOR CONSULTATION: I was asked to see the patient to assist in evaluation and management of patient's acute kidney injury as reflected by creatinine of 9.4 and BUN over 125 along with hyperkalemia with potassium of 6.4 and an anion gap metabolic acidosis with a bicarb of 10 and an anion gap of 23. HISTORY OF PRESENT ILLNESS: In summary, the patient is a 63-year-old gentleman with a history of rheumatoid arthritis, type 2 diabetes, maintained on metformin, hypertension, hyperlipidemia, and a history of stroke. In summary, patient was on a 17-day cruise and apparently became sick about 10 days ago on the cruise with watery diarrhea, nausea, and vomiting, got quite dehydrated. He was seen on the ship by the medical personnel and thought just to have sea sickness. He arrived yesterday from his trip. He was doing very poorly and his brought him to the emergency room and he was noted to have the severe metabolic abnormalities as noted. He states he has had very poor urine output for the past 2 to 3 days. He denies any fevers, sweats, or chills. There has been no blood in the stools. PAST MEDICAL HISTORY: As mentioned above. MEDICATIONS ON ADMISSION: Norvasc, aspirin, Lipitor, folate, hydrochlorothiazide, Plaquenil, lisinopril 20 once a day, metformin 1000 mg twice a day and methotrexate. ALLERGIES: HE HAS NO KNOWN DRUG ALLERGIES. SOCIAL HISTORY: He is a nonsmoker, nondrinker. No illicit drug use. Unclear whether he takes NSAIDs or not. FAMILY HISTORY: Noncontributory. REVIEW OF SYSTEMS: As noted above. PHYSICAL EXAMINATION: VITAL SIGNS: Blood pressure was in the low 90s initially, now systolics up to 100 after receiving about 4 L of IV fluid. HEENT: Mucous membranes are dry. NECK: There is no JVD. LUNGS: Breath sounds bilaterally. CARDIAC: Regular rate and rhythm. ABDOMEN: Soft, obese, and nontender. No CVA tenderness. EXTREMITIES: No edema. LABORATORY DATA: Hemoglobin of 11, hematocrit 33, white blood cell count 10.9, platelet count 228. Sodium 140, potassium 5.3, chloride 113, bicarb 12, BUN 57, creatinine 8.5. Actually, the creatinine was about 9 initially. Lactate level was 0.7. IMPRESSION: 63-YEAR-OLD DIABETIC, HYPERTENSIVE PATIENT, ADMITTED WITH SEVERE DEHYDRATION, SEVERE ACUTE KIDNEY INJURY WITH HYPERKALEMIA AND METABOLIC ACIDOSIS. 1. Oliguric acute kidney injury. Clinical presentation consistent with severe dehydration with renal hypoperfusion, accentuated by being on an MELISSA inhibitor and diuretic. Other possibilities such as acute obstructive uropathy seems unlikely as there is no hydronephrosis on the imaging studies. Other concerns such as acute interstitial nephritis, acute glomerulonephritis seemed unlikely given his clinical presentation. 2. Anion gap metabolic acidosis. Given that he is on metformin, there was a concern that he could have metformin poisoning which can happen in patients with acute kidney injury that are on metformin causing a type B lactic acidosis. Fortunately, his lactate was 0.7, and therefore he does not need emergent dialysis from the standpoint of metformin poisoning given the absence of any lactic acidosis. 3. Hyperkalemia. This is due to acute kidney injury as well as being on an MELISSA inhibitor and the metabolic acidosis causing transcellular potassium moving out of the cells. This should respond to correction of the metabolic acidosis along with giving some Lokelma. 4. Severe dehydration. He is getting rehydrated. 5. Gastroenteritis. He is getting further evaluation for this. RECOMMENDATIONS: At this time include the followin. IV hydration using an isotonic sodium bicarb infusion. 2. Obtain urine studies including urinalysis, spot urine for sodium, protein and creatinine. 3. Obtain beta-hydroxybutyrate. 4. Avoid use of metformin. 5. Place a L[place] so we can monitor urine output. At this juncture, we will hold off doing dialysis as our expectations are that with IV hydration, his renal function will improve given his presentation. Need to monitor him closely for possible need for dialysis in the next 24 to 48 hours depending on his clinical course. ADDENDUM: Of note, his CAT scan mentioned that his left kidney was somewhat atrophic. We will also add on CPK which has not been done. We will follow the patient closely with the team. MD KENDAL Alexander/ROMULO / [id number]
[2023-04-18 03:20] VITALS: BP 112/56; PULSE 77; RESP 20; TEMP 36.1; O2SAT 98
[2023-04-18 03:57] LABS: Anion Gap 18 (12-20); Carbon Dioxide 15 mmol/L (22-29); Chloride 112 mmol/L (96-108); Potassium 4.5 mmol/L (3.3-5.1); Sodium 140 mmol/L (135-145)
[2023-04-18] MEDS: Sodium Bicarbonate 8.4% 150 MEQ in Dextrose 5 % 850 ML 50 MEQ IV (06:41)
[2023-04-18 06:54] LABS: MANUAL DIFF FLAG NO
[2023-04-18 07:10] LABS: Eosinophils Percent Auto 0.3 % (0-4); Hematocrit 25.9 % (42.0-52.0); Hemoglobin 8.7 g/dl (14.0-18.0); Imm Gran Abs Auto 0.02 X10*3/uL (0.00-0.03); Imm Gran Pct Auto 0.5 % (0.0-0.4); Lymphocytes Absolute Auto 0.4 X10*3/uL (1.2-4.9); Lymphocytes Percent Auto 9.1 % (20-40); Mean Corpuscular HGB Conc 33.6 g/dl (31.0-36.0); Mean Corpuscular Hemoglobin 34.3 pg (27.0-33.0); Mean Platelet Volume 10.6 fL (9.4-12.4); Monocytes Absolute Auto 0.3 X10*3/uL (0.1-1.2); Monocytes Percent Auto 7.6 % (2-11); Neutrophils Absolute Auto 3.3 x10*3/uL (2.0-8.3); Neutrophils Percent Auto 82.5 % (45-73); Platelet Count 163 X10*3/uL (160-400); Red Blood Count 2.54 X10*6/uL (4.60-5.80)
[2023-04-18 07:32] LABS: Anion Gap 17 (12-20); Calcium 7.4 mg/dL (8.4-10.2); Carbon Dioxide 16 mmol/L (22-29); Chloride 112 mmol/L (96-108); Creatinine Clr Calc Pharmacy 14.5; Estimated Glomerular Filt Rate 9; Glucose Random 128 mg/dL (60-115); Potassium 4.4 mmol/L (3.3-5.1); Sodium 141 mmol/L (135-145)
[2023-04-18 07:38] LABS: Blood Urea Nitrogen 134 mg/dL (9-16)
[2023-04-18 07:44] VITALS: BP 132/63; PULSE 91; RESP 20; TEMP 36.2; O2SAT 99
[2023-04-18 07:55] LABS: Glucose, Whole Blood 110 mg/dL (60-115)
[2023-04-18] MEDS: Hydroxychloroquine Sulfate 200 MG TABLET 400 MG PO (08:22)
[2023-04-18] MEDS: Folic Acid 1 MG TABLET 2 MG PO (08:22)
[2023-04-18 08:34] LABS: Phosphorus 5.7 mg/dL (2.7-4.5)
[2023-04-18 11:16] LABS: Glucose, Whole Blood 138 mg/dL (60-115)
[2023-04-18 11:17] VITALS: BP 128/58; PULSE 79; RESP 20; TEMP 35.8; O2SAT 98
[2023-04-18 11:33] LABS: Magnesium 1.8 mg/dL (1.6-2.6)
[2023-04-18 12:01] LABS: CDiff Gene PCR NEGATIVE (Negative)
[2023-04-18] MEDS: Metoprolol Tartrate 12.5 MG HALFTAB PO ×2 (12:09→19:59)
[2023-04-18] MEDS: Sodium Bicarbonate 650 MG TABLET PO (12:09)
--- NOTE | 2023-04-18 14:19 | MHC.CM.PN ---
CM met with Patient at bedside. Patient lives in a house with his Sister/HCP and he once used a cane to assist with mobility, but he lost the cane. Patient states that he does receive home services but he cannot recall the name of the agency the services come from. CM left a detailed message for Patient's Sister requesting the name of the home services agency. Patient has received Covid vax x5 and the PCP/PA is Estephania Carey.
--- NOTE | 2023-04-18 14:49 | HO.PM.IMPN ---
Subjective Subjective Date of Service: 04/18/23 Interval History: Seen and evaluated this morning did not sleep well making urine Cr trending down Hb trending down tolerated dialysis Review of Systems Review of Systems: Yes all other systems are reviewed and are negative Physical Exam Vital Signs: Vital Signs: Last Vital Signs Temp 96.5 F L 04/18/23 11:17 Pulse 79 04/18/23 11:17 Resp 20 04/18/23 11:17 BP 128/58 L 04/18/23 11:17 Pulse Ox 98 04/18/23 11:17 O2 Del Method Room Air 04/18/23 11:17 BMI result Body Mass Index 38.9 Const: Other: Constitutional : Awake, interactive, not in distress Neck : Normal inspection, Supple Cardiovascular : RRR, no JVP, trace lower extremity edema Respiratory : good bilateral air entry, no crackles, wheezes or rhonchi Gastrointestinal: soft, lax, Normal bowel sounds, Non tender Skin : Warm, Dry Neurological : Alert & oriented to self and place, No focal deficit Objective Data Active Medications Acetaminophen (Acetaminophen 325 Mg Tablet) 650 mg PO Q6H PRN PRN Reason: Pain, Mild (Pain Scale 1-3) Last Admin: 04/18/23 01:27 Dose: 650 mg Documented By: JOEY Aspirin (Aspirin Enteric Coated 81 Mg Tablet.) 81 mg PO DAILY [facility] Last Admin: 04/18/23 09:51 Dose: Not Given Documented By: SHAWANDA Non-Admin Reason: Pt states that he had bloody stools yesterday Atorvastatin Calcium (Atorvastatin Calcium 80 Mg Tablet) 80 mg PO BEDTIME [facility] Docusate Sodium (Docusate Sodium 100 Mg Capsule) 100 mg PO DAILY PRN PRN Reason: Constipation Folic Acid (Folic Acid 1 Mg Tablet) 2 mg PO DAILY [facility] Last Admin: 04/18/23 08:22 Dose: 2 mg Documented By: SHAWANDA Glucose (Glucose Gel 15 Gm Gel..Gram.) 15 gm PO Q15M PRN; Protocol PRN Reason: per Hypoglycemia Standing Ord. Heparin Sodium (Porcine) (Heparin Sodium,Porcine 5,000 Unit/Ml Vial) 5,000 unit SUBCUT Q12H [facility] Last Admin: 04/18/23 01:24 Dose: 5,000 unit Documented By: JOEY Hydroxychloroquine Sulfate (Hydroxychloroquine Sulfate 200 Mg Tablet) 400 mg PO DAILY [facility] Last Admin: 04/18/23 08:22 Dose: 400 mg Documented By: SHAWANDA Dextrose (D10) 250 mls @ 750 mls/hr IV Q15M PRN; Protocol PRN Reason: per Hypoglycemia Standing Ord. Insulin Human Lispro (Insulin Lispro 100 Unit/Ml 3 Ml Vial) 0 unit SUBCUT QIDACHS [facility]; Protocol Last Admin: 04/18/23 11:18 Dose: Not Given Documented By: SHAWANDA Non-Admin Reason: No Insulin Coverage Metoprolol Tartrate (Metoprolol Tartrate 12.5 Mg Halftab) 12.5 mg PO BID [facility]; Protocol Last Admin: 04/18/23 12:09 Dose: 12.5 mg Documented By: SHAWANDA Ondansetron HCl (Ondansetron Hcl 4 Mg/2 Ml Vial) 4 mg IVPUSH Q8H PRN PRN Reason: Nausea and Vomiting Pharmacy Consult (Consult Rx Perform Med Rec) 1 each MISCELLANE ONCE PRN PRN Reason: Consult order Sodium Bicarbonate (Sodium Bicarbonate 650 Mg Tablet) 650 mg PO TID [facility] Last Admin: 04/18/23 12:09 Dose: 650 mg Documented By: SHAWANDA Sodium Chloride (0.9 % Sodium Chloride Flush 3 Ml Syringe) 3 ml IVFLUSH QSHIFT [facility] Last Admin: 04/18/23 07:57 Dose: Not Given Documented By: SHAWANDA Non-Admin Reason: IV Running Labs 04/18/23 06:12 04/18/23 06:12 Labs: Laboratory Results - last 24 hr 04/17/23 04/17/23 04/17/23 12:49 18:11 21:12 MCV MCH MCHC RDW Plt Count MPV Immature Gran % (Auto) Neut % (Auto) Lymph % (Auto) [place] % (Auto) Eos % (Auto) Baso % (Auto) Lymph # (Auto) [place] # (Auto) Eos # (Auto) Baso # (Auto) Abs Immat Gran (auto) Absolute Neuts (auto) Absolute Nucleated RBC Nucleated RBC % (auto) Anion Gap Estim Creat Clear Calc Estimated GFR POC Glucose 111 108 Random Glucose Calcium Phosphorus Magnesium Total Creatine Kinase 211 H Vitamin B12 736 Folate > 20.0 C. difficile Tox B Gene 0604/18/23 04/18/23 03:33 06:12 06:12 MCV 102.0 H MCH 34.3 H MCHC 33.6 RDW 13.0 Plt Count 163 D MPV 10.6 Immature Gran % (Auto) 0.5 H Neut % (Auto) 82.5 H Lymph % (Auto) 9.1 L [place] % (Auto) 7.6 Eos % (Auto) 0.3 Baso % (Auto) 0.0 Lymph # (Auto) 0.4 L [place] # (Auto) 0.3 Eos # (Auto) 0.0 Baso # (Auto) 0.0 Abs Immat Gran (auto) 0.02 Absolute Neuts (auto) 3.3 Absolute Nucleated RBC 0.000 Nucleated RBC % (auto) 0.0 Anion Gap 18 17 Estim Creat Clear Calc 14.5 Estimated GFR 9 POC Glucose Random Glucose 128 H Calcium 7.4 L Phosphorus 5.7 H Magnesium 1.8 Total Creatine Kinase Vitamin B12 Folate C. difficile Tox B Gene 04/18/23 04/18/23 04/18/23 07:49 10:36 11:08 MCV MCH MCHC RDW Plt Count MPV Immature Gran % (Auto) Neut % (Auto) Lymph % (Auto) [place] % (Auto) Eos % (Auto) Baso % (Auto) Lymph # (Auto) [place] # (Auto) Eos # (Auto) Baso # (Auto) Abs Immat Gran (auto) Absolute Neuts (auto) Absolute Nucleated RBC Nucleated RBC % (auto) Anion Gap Estim Creat Clear Calc Estimated GFR POC Glucose 110 138 H Random Glucose Calcium Phosphorus Magnesium Total Creatine Kinase Vitamin B12 Folate C. difficile Tox B Gene NEGATIVE Microbiology Microbiology Results: Microbiology 04/17/23 15:15 Urine Culture - Final Urine Catheterized - Loving Catheter No growth. Assessment and Plan (1) GERRY (acute kidney injury): Status: Acute (2) Acute hyperkalemia: Status: Acute (3) Nausea vomiting and diarrhea: Status: Acute (4) Anemia, macrocytic: Status: Acute Plan 63 year old male with history of RA on hydroxychloroquine and methotrexate, non insulin dependent type 2 diabetes, htn, hld, and history CVA admitted for GERRY with uremia. #Acute kidney injury with uremia- likely related to hypovolemia, complicated by continued metforming, lisinopril,, and hctz use Creat improved to 6.5 with IVF no metformin poisoning Continue IVF with NS Loving catheter Nephrology consult, No emergent HD at this time Hold nephrotoxins Follow BMP and divalents #Acute toxic metabolic encephalopathy due to uremia continue IVF Monitor mentation, reorientation #Acute hyperkalemia resolved Follow lytes #Acute metabolic acidosis related to GERRY and uremia DC bicarb drip, start PO NaHCO3 Continue IVF #Acute diarrhea possible infectious etiology pending GI panel #Acute blood loss anemia- likely hemorrhoidal bleed secondary to diarrhea Hb dropped to 8.7 , likely from hydration, no obvious source of bleeding identified No prev labs available, could have baseline chronic macrocytic anemia. Folic acid and vitamin B12 levels normal H/H above transfusion threshold of 7 follow CBC #RA hold methotrexate, continue hydroxychloroquine # hypertension improved hold amlodipine, lisinopril and hydrochlorothiazide in setting of soft BP and GERRY # Obesity Advised weight loss DVT prophylaxis-heparin Full code Patient requires inpatient stay overnight for management of acute kidney injury with uremia secondary to suspected infectious diarrhea requiring aggressive IV hydration, expert consultation, and close monitoring as patient may need dialysis if no improvement Time Spent With Patient Time: Total time managing care of this patient today ____ minutes. Quality Stroke Does the patient have a stroke diagnosis?: No VTE Prior VTE?: No VTE Risk Level:: Medical - moderate - high VTE Device Contraindication: Treatment Not Indicated VTE Drug Contraindication: N/A - Med Ordered
[2023-04-18] MEDS: Sodium Bicarbonate 650 MG TABLET 1300 MG PO ×2 (15:14→19:59)
[2023-04-18 15:20] VITALS: BP 164/69; PULSE 80; RESP 17; TEMP 37.3; O2SAT 99
[2023-04-18 15:38] LABS: Glucose, Whole Blood 107 mg/dL (60-115)
[2023-04-18 15:56] LABS: Campylobacter Not Detected (Not Detect.); E. coli EAEC Not Detected (Not Detect.); Plesiomonas shigelloides Not Detected (Not Detect.); Salmonella Not Detected (Not Detect.); Vibrio Not Detected (Not Detect.); Vibrio Cholerae Not Detected (Not Detect.); Yersinia enterocolitica Not Detected (Not Detect.)
[2023-04-18 15:57] LABS: Adenovirus F 40/41 Not Detected (Not Detect.); Astrovirus Not Detected (Not Detect.); Cryptosporidium Not Detected (Not Detect.); Cyclospora cayetanensis Not Detected (Not Detect.); E. coli EPEC Not Detected (Not Detect.); E. coli ETEC Not Detected (Not Detect.); E. coli STEC Not Detected (Not Detect.); Entamoeba histolytica Not Detected (Not Detect.); Giardia lamblia Not Detected (Not Detect.); Norovirus GI/GII Not Detected (Not Detect.); Rotavirus A Not Detected (Not Detect.); Sapovirus Not Detected (Not Detect.); Shigella sp./EIEC Not Detected (Not Detect.)
--- NOTE | 2023-04-18 16:22 | PM.PNNEP ---
Subjective Subjective Date of Service: 04/18/23 Interval history: Seen and examined, events noted NO HD needed bc no evid of metformin toxicity ( Lac not elevated) Incr UOP and decr Scr Physical Exam Vital Signs: Vital Signs: Last Vital Signs Temp 99.2 F 04/18/23 15:20 Pulse 80 04/18/23 15:20 Resp 17 04/18/23 15:20 BP 164/69 H 04/18/23 15:20 Pulse Ox 99 04/18/23 15:20 O2 Del Method Room Air 04/18/23 15:20 BMI result Body Mass Index 38.9 Const: Other: Constitutional : Awake, interactive, not in distress Neck : Normal inspection, Supple Cardiovascular : RRR, no JVP, trace lower extremity edema Respiratory : good bilateral air entry, no crackles, wheezes or rhonchi Gastrointestinal: soft, lax, Normal bowel sounds, Non tender Skin : Warm, Dry Neurological : Alert & oriented to self and place, No focal deficit Objective Data Labs 04/18/23 06:12 04/18/23 06:12 Labs: Laboratory Results - last 24 hr 04/17/23 04/17/23 04/17/23 12:49 18:11 21:12 WBC RBC Hgb Hct MCV MCH MCHC RDW Plt Count MPV Immature Gran % (Auto) Neut % (Auto) Lymph % (Auto) [place] % (Auto) Eos % (Auto) Baso % (Auto) Lymph # (Auto) [place] # (Auto) Eos # (Auto) Baso # (Auto) Abs Immat Gran (auto) Absolute Neuts (auto) Absolute Nucleated RBC Nucleated RBC % (auto) Sodium Potassium Chloride Carbon Dioxide Anion Gap BUN Creatinine Estim Creat Clear Calc Estimated GFR POC Glucose 111 108 Random Glucose Calcium Phosphorus Magnesium Total Creatine Kinase 211 H Stl C. cayetanensis PCR Stool Rotavirus A PCR Stl Adenov F 40/41 PCR Stool Astrovirus (PCR) Stool Campylobacter PCR Stool Cryptosporidium PCR Stl Sh Tox Pr E STEC PCR Stool E coli O157 PCR Stl Enterotoxigenic E PCR Stool EPEC (PCR) Stool EAEC (PCR) Stl E. histolytica PCR Stool Giardia Lamblia PCR Stl P. shigelloides PCR Stool Salmonella PCR Stool Sapovirus (PCR) Stl Shigella/EIEC PCR St Y.enterocolitica PCR Stool Vibrio (PCR) Stl Vibrio cholerae PCR Stl Norovirus GI/GII PCR C. difficile Tox B Gene 04/18/23 04/18/23 04/18/23 03:33 06:12 06:12 WBC 4.0 L RBC 2.54 L D Hgb 8.7 L D Hct 25.9 L D MCV 102.0 H MCH 34.3 H MCHC 33.6 RDW 13.0 Plt Count 163 D MPV 10.6 Immature Gran % (Auto) 0.5 H Neut % (Auto) 82.5 H Lymph % (Auto) 9.1 L [place] % (Auto) 7.6 Eos % (Auto) 0.3 Baso % (Auto) 0.0 Lymph # (Auto) 0.4 L [place] # (Auto) 0.3 Eos # (Auto) 0.0 Baso # (Auto) 0.0 Abs Immat Gran (auto) 0.02 Absolute Neuts (auto) 3.3 Absolute Nucleated RBC 0.000 Nucleated RBC % (auto) 0.0 Sodium 140 141 Potassium 4.5 4.4 Chloride 112 H 112 H Carbon Dioxide 15 L 16 L Anion Gap 18 17 BUN 134 H Creatinine 6.52 H* Estim Creat Clear Calc 14.5 Estimated GFR 9 POC Glucose Random Glucose 128 H Calcium 7.4 L Phosphorus 5.7 H Magnesium 1.8 Total Creatine Kinase Stl C. cayetanensis PCR Stool Rotavirus A PCR Stl Adenov F 40/41 PCR Stool Astrovirus (PCR) Stool Campylobacter PCR Stool Cryptosporidium PCR Stl Sh Tox Pr E STEC PCR Stool E coli O157 PCR Stl Enterotoxigenic E PCR Stool EPEC (PCR) Stool EAEC (PCR) Stl E. histolytica PCR Stool Giardia Lamblia PCR Stl P. shigelloides PCR Stool Salmonella PCR Stool Sapovirus (PCR) Stl Shigella/EIEC PCR St Y.enterocolitica PCR Stool Vibrio (PCR) Stl Vibrio cholerae PCR Stl Norovirus GI/GII PCR C. difficile Tox B Gene 04/18/23 04/18/23 04/18/23 07:49 10:36 10:36 WBC RBC Hgb Hct MCV MCH MCHC RDW Plt Count MPV Immature Gran % (Auto) Neut % (Auto) Lymph % (Auto) [place] % (Auto) Eos % (Auto) Baso % (Auto) Lymph # (Auto) [place] # (Auto) Eos # (Auto) Baso # (Auto) Abs Immat Gran (auto) Absolute Neuts (auto) Absolute Nucleated RBC Nucleated RBC % (auto) Sodium Potassium Chloride Carbon Dioxide Anion Gap BUN Creatinine Estim Creat Clear Calc Estimated GFR POC Glucose 110 Random Glucose Calcium Phosphorus Magnesium Total Creatine Kinase Stl C. cayetanensis PCR Not Detected Stool Rotavirus A PCR Not Detected Stl Adenov F 40/41 PCR Not Detected Stool Astrovirus (PCR) Not Detected Stool Campylobacter PCR Not Detected Stool Cryptosporidium PCR Not Detected Stl Sh Tox Pr E STEC PCR Not Detected Stool E coli O157 PCR Not applicable Stl Enterotoxigenic E PCR Not Detected Stool EPEC (PCR) Not Detected Stool EAEC (PCR) Not Detected Stl E. histolytica PCR Not Detected Stool Giardia Lamblia PCR Not Detected Stl P. shigelloides PCR Not Detected Stool Salmonella PCR Not Detected Stool Sapovirus (PCR) Not Detected Stl Shigella/EIEC PCR Not Detected St Y.enterocolitica PCR Not Detected Stool Vibrio (PCR) Not Detected Stl Vibrio cholerae PCR Not Detected Stl Norovirus GI/GII PCR Not Detected C. difficile Tox B Gene NEGATIVE 04/18/23 04/18/23 11:08 15:36 WBC RBC Hgb Hct MCV MCH MCHC RDW Plt Count MPV Immature Gran % (Auto) Neut % (Auto) Lymph % (Auto) [place] % (Auto) Eos % (Auto) Baso % (Auto) Lymph # (Auto) [place] # (Auto) Eos # (Auto) Baso # (Auto) Abs Immat Gran (auto) Absolute Neuts (auto) Absolute Nucleated RBC Nucleated RBC % (auto) Sodium Potassium Chloride Carbon Dioxide Anion Gap BUN Creatinine Estim Creat Clear Calc Estimated GFR POC Glucose 138 H 107 Random Glucose Calcium Phosphorus Magnesium Total Creatine Kinase Stl C. cayetanensis PCR Stool Rotavirus A PCR Stl Adenov F 40/41 PCR Stool Astrovirus (PCR) Stool Campylobacter PCR Stool Cryptosporidium PCR Stl Sh Tox Pr E STEC PCR Stool E coli O157 PCR Stl Enterotoxigenic E PCR Stool EPEC (PCR) Stool EAEC (PCR) Stl E. histolytica PCR Stool Giardia Lamblia PCR Stl P. shigelloides PCR Stool Salmonella PCR Stool Sapovirus (PCR) Stl Shigella/EIEC PCR St Y.enterocolitica PCR Stool Vibrio (PCR) Stl Vibrio cholerae PCR Stl Norovirus GI/GII PCR C. difficile Tox B Gene Microbiology Microbiology Results: Microbiology 04/17/23 15:15 Urine Catheterized - Loving Catheter Urine Culture - Final No growth. Procedures Date of Service Date of Service: 04/18/23 Assessment & Plan Assessment and plan (1) GERRY (acute kidney injury): Status: Acute (2) Acute hyperkalemia: Status: Acute (3) Nausea vomiting and diarrhea: Status: Acute (4) Anemia, macrocytic: Status: Acute Plan 1. Oliguric --> Non-Oliguuric GERRY: c/w henal hypoperfsuiion from jay dehydration and effect of MELISSA/diuretic compounding the prob, given ther rate of renal recovery is not robust c/w compone t of ischemnic ATN good news is GERRY is recovering based on decr Scr 2. AGMA/NAGMA: d/t GERRY/diarrhea 3. Decr Hb: w/u in progress; dilutional playing a role BUT not the complete cause REC: no indication fo rHD at this time; cont IVF and track renal func/UOP; anenia w/u Time Spent With Patient Time: Total time managing care of this patient today ____ minutes. Progress Note: Quality Stroke Does the patient have a stroke diagnosis?: No
[2023-04-18] MEDS: 0.9 % Sodium Chloride 1,000 ML 80 ML IVCONT (18:42)
[2023-04-18 18:50] VITALS: BP 114/50; PULSE 73; RESP 18; TEMP 36; O2SAT 98
[2023-04-18 19:36] LABS: Glucose, Whole Blood 128 mg/dL (60-115)
[2023-04-18] MEDS: Atorvastatin Calcium 80 MG TABLET PO (19:59)
[2023-04-18 23:24] VITALS: BP 97/53; PULSE 73; RESP 16; TEMP 36.6; O2SAT 97
[2023-04-19] MEDS: Heparin Sodium,Porcine 5,000 UNIT/ML VIAL 5000 UNIT SUBCUT ×2 (02:17→14:30)
[2023-04-19] MEDS: 0.9 % Sodium Chloride 1,000 ML 80 ML IVCONT (03:29)
[2023-04-19 03:53] VITALS: BP 100/53; PULSE 72; RESP 20; TEMP 37.2; O2SAT 96
[2023-04-19 06:54] LABS: Hematocrit 27.8 % (42.0-52.0); Hemoglobin 9.1 g/dl (14.0-18.0); Mean Corpuscular HGB Conc 32.7 g/dl (31.0-36.0); Mean Corpuscular Volume 103.7 fL (80.0-98.0); Mean Platelet Volume 10.2 fL (9.4-12.4); Platelet Count 177 X10*3/uL (160-400); Red Blood Count 2.68 X10*6/uL (4.60-5.80); White Blood Count 4.3 X10*3/uL (4.8-10.8)
[2023-04-19 07:15] LABS: Anion Gap 16 (12-20); Blood Urea Nitrogen 102 mg/dL (9-16); Calcium 7.6 mg/dL (8.4-10.2); Carbon Dioxide 19 mmol/L (22-29); Chloride 115 mmol/L (96-108); Creatinine Clr Calc Pharmacy 20.3; Estimated Glomerular Filt Rate 13; Glucose Random 123 mg/dL (60-115); Potassium 4.5 mmol/L (3.3-5.1); Sodium 145 mmol/L (135-145)
[2023-04-19 07:25] VITALS: BP 127/75; PULSE 77; RESP 20; TEMP 36.7; O2SAT 98
[2023-04-19 07:38] LABS: Glucose, Whole Blood 113 mg/dL (60-115)
[2023-04-19] MEDS: Sodium Bicarbonate 650 MG TABLET 1300 MG PO ×3 (07:44→20:23)
[2023-04-19] MEDS: Hydroxychloroquine Sulfate 200 MG TABLET 400 MG PO (07:45)
[2023-04-19] MEDS: Metoprolol Tartrate 12.5 MG HALFTAB PO ×2 (07:45→20:23)
[2023-04-19] MEDS: Aspirin Enteric Coated 81 MG TABLET.DR PO (07:45)
[2023-04-19] MEDS: Folic Acid 1 MG TABLET 2 MG PO (07:45)
--- NOTE | 2023-04-19 10:55 | MHC.CM.PN ---
EMR REVIEWED, PT REMAINS ON IV FLUIDS, CR TRENDING DOWN, PER HOSPITALIST PT REMAINS ACUTE AND CONT'S TO HAVE DIARRHEA, NO PLAN FOR D/C AT THIS TIME, CM WILL CONT TO FOLLOW D/C NEEDS.
[2023-04-19 11:10] VITALS: BP 115/73; PULSE 71; RESP 20; TEMP 36.3; O2SAT 99
[2023-04-19 11:33] LABS: Glucose, Whole Blood 129 mg/dL (60-115)
--- NOTE | 2023-04-19 12:27 | P.PNIM_ITS ---
Subjective Subjective Date of Service: 04/19/23 Interval History: still with diarrhea Physical Exam Vital Signs: Vital Signs: Last Vital Signs Temp 97.3 F 04/19/23 11:10 Pulse 71 04/19/23 11:10 Resp 20 04/19/23 11:10 BP 115/73 04/19/23 11:10 Pulse Ox 99 04/19/23 11:10 O2 Del Method Room Air 04/19/23 11:10 BMI result Body Mass Index 38.9 tremulous, agitated, alert oriented times 3 Objective Data Active Medications Acetaminophen (Acetaminophen 325 Mg Tablet) 650 mg PO Q6H PRN PRN Reason: Pain, Mild (Pain Scale 1-3) Last Admin: 04/18/23 01:27 Dose: 650 mg Documented By: JOEY Aspirin (Aspirin Enteric Coated 81 Mg Tablet.Dr) 81 mg PO DAILY [facility] Last Admin: 04/19/23 07:45 Dose: 81 mg Documented By: MARY Atorvastatin Calcium (Atorvastatin Calcium 80 Mg Tablet) 80 mg PO BEDTIME [facility] Last Admin: 04/18/23 19:59 Dose: 80 mg Documented By: MARY ANNE Docusate Sodium (Docusate Sodium 100 Mg Capsule) 100 mg PO DAILY PRN PRN Reason: Constipation Folic Acid (Folic Acid 1 Mg Tablet) 2 mg PO DAILY [facility] Last Admin: 04/19/23 07:45 Dose: 2 mg Documented By: MARY Glucose (Glucose Gel 15 Gm Gel..Gram.) 15 gm PO Q15M PRN; Protocol PRN Reason: per Hypoglycemia Standing Ord. Heparin Sodium (Porcine) (Heparin Sodium,Porcine 5,000 Unit/Ml Vial) 5,000 unit SUBCUT Q12H [facility] Last Admin: 04/19/23 02:17 Dose: 5,000 unit Documented By: MARY ANNE Hydroxychloroquine Sulfate (Hydroxychloroquine Sulfate 200 Mg Tablet) 400 mg PO DAILY [facility] Last Admin: 04/19/23 07:45 Dose: 400 mg Documented By: MARY Dextrose (D10) 250 mls @ 750 mls/hr IV Q15M PRN; Protocol PRN Reason: per Hypoglycemia Standing Ord. Sodium Chloride (Ns) 1,000 mls @ 80 mls/hr IVCONT .[id number] [facility] Last Admin: 04/19/23 03:29 Dose: 80 mls/hr Documented By: MARY ANNE Insulin Human Lispro (Insulin Lispro 100 Unit/Ml 3 Ml Vial) 0 unit SUBCUT QIDACHS [facility]; Protocol Last Admin: 04/19/23 12:04 Dose: Not Given Documented By: MARY Non-Admin Reason: No Insulin Coverage Metoprolol Tartrate (Metoprolol Tartrate 12.5 Mg Halftab) 12.5 mg PO BID [facility]; Protocol Last Admin: 04/19/23 07:45 Dose: 12.5 mg Documented By: MARY Ondansetron HCl (Ondansetron Hcl 4 Mg/2 Ml Vial) 4 mg IVPUSH Q8H PRN PRN Reason: Nausea and Vomiting Pharmacy Consult (Consult Rx Perform Med Rec) 1 each MISCELLANE ONCE PRN PRN Reason: Consult order Sodium Bicarbonate (Sodium Bicarbonate 650 Mg Tablet) 1,300 mg PO TID [facility] Last Admin: 04/19/23 07:44 Dose: 1,300 mg Documented By: MARY Sodium Chloride (0.9 % Sodium Chloride Flush 3 Ml Syringe) 3 ml IVFLUSH QSHIFT [facility] Last Admin: 04/19/23 07:52 Dose: Not Given Documented By: MARY Non-Admin Reason: IV Running Labs 04/19/23 06:35 04/19/23 06:35 Labs: Laboratory Results - last 24 hr 04/18/23 04/18/23 04/18/23 10:36 15:36 19:33 MCV MCH MCHC RDW Plt Count MPV Absolute Nucleated RBC Nucleated RBC % (auto) Anion Gap Estim Creat Clear Calc Estimated GFR POC Glucose 107 128 H Random Glucose Calcium Stl C. cayetanensis PCR Not Detected Stool Rotavirus A PCR Not Detected Stl Adenov F 40/41 PCR Not Detected Stool Astrovirus (PCR) Not Detected Stool Campylobacter PCR Not Detected Stool Cryptosporidium PCR Not Detected Stl Sh Tox Pr E STEC PCR Not Detected Stool E coli O157 PCR Not applicable Stl Enterotoxigenic E PCR Not Detected Stool EPEC (PCR) Not Detected Stool EAEC (PCR) Not Detected Stl E. histolytica PCR Not Detected Stool Giardia Lamblia PCR Not Detected Stl P. shigelloides PCR Not Detected Stool Salmonella PCR Not Detected Stool Sapovirus (PCR) Not Detected Stl Shigella/EIEC PCR Not Detected St Y.enterocolitica PCR Not Detected Stool Vibrio (PCR) Not Detected Stl Vibrio cholerae PCR Not Detected Stl Norovirus GI/GII PCR Not Detected 04/19/23 04/19/23 04/19/23 06:35 06:35 07:27 MCV 103.7 H MCH 34.0 H MCHC 32.7 RDW 13.0 Plt Count 177 MPV 10.2 Absolute Nucleated RBC 0.000 Nucleated RBC % (auto) 0.0 Anion Gap 16 Estim Creat Clear Calc 20.3 Estimated GFR 13 POC Glucose 113 Random Glucose 123 H Calcium 7.6 L Stl C. cayetanensis PCR Stool Rotavirus A PCR Stl Adenov F 40/41 PCR Stool Astrovirus (PCR) Stool Campylobacter PCR Stool Cryptosporidium PCR Stl Sh Tox Pr E STEC PCR Stool E coli O157 PCR Stl Enterotoxigenic E PCR Stool EPEC (PCR) Stool EAEC (PCR) Stl E. histolytica PCR Stool Giardia Lamblia PCR Stl P. shigelloides PCR Stool Salmonella PCR Stool Sapovirus (PCR) Stl Shigella/EIEC PCR St Y.enterocolitica PCR Stool Vibrio (PCR) Stl Vibrio cholerae PCR Stl Norovirus GI/GII PCR 04/19/23 11:13 MCV MCH MCHC RDW Plt Count MPV Absolute Nucleated RBC Nucleated RBC % (auto) Anion Gap Estim Creat Clear Calc Estimated GFR POC Glucose 129 H Random Glucose Calcium Stl C. cayetanensis PCR Stool Rotavirus A PCR Stl Adenov F 40/41 PCR Stool Astrovirus (PCR) Stool Campylobacter PCR Stool Cryptosporidium PCR Stl Sh Tox Pr E STEC PCR Stool E coli O157 PCR Stl Enterotoxigenic E PCR Stool EPEC (PCR) Stool EAEC (PCR) Stl E. histolytica PCR Stool Giardia Lamblia PCR Stl P. shigelloides PCR Stool Salmonella PCR Stool Sapovirus (PCR) Stl Shigella/EIEC PCR St Y.enterocolitica PCR Stool Vibrio (PCR) Stl Vibrio cholerae PCR Stl Norovirus GI/GII PCR Microbiology Microbiology Results: Microbiology 04/17/23 15:15 Urine Culture - Final Urine Catheterized - Loving Catheter No growth. Assessment and Plan (1) GERRY (acute kidney injury): Status: Acute (2) Acute hyperkalemia: Status: Acute (3) Nausea vomiting and diarrhea: Status: Acute (4) Anemia, macrocytic: Status: Acute Plan 63M PMH of RA on hydroxychloroquine and methotrexate, non insulin dependent type 2 diabetes, htn, hld, and history CVA presented with diarrhea, confusion Acute kidney injury complicated by acute metabolic encephalopathy due to uremia- likely related to hypovolemia, complicated by continued metformin, lisinopril,, and hctz use Creat improving, non oliguric no metformin poisoning Continue IVF with NS Loving catheter Nephrology following, No emergent HD at this time Follow BMP Acute hyperkalemia resolved Follow labs Acute metabolic acidosis related to GERRY and uremia started PO NaHCO3 Acute diarrhea stool studies negative for infection still with diarrhea gi eval Acute blood loss anemia- likely hemorrhoidal bleed secondary to diarrhea Hb dropped to 8.7 , likely from hydration, no obvious source of bleeding identified No prev labs available, could have baseline chronic macrocytic anemia. Folic acid and vitamin B12 levels normal H/H above transfusion threshold of 7 follow CBC RA hold methotrexate, continue hydroxychloroquine hypertension improved hold amlodipine, lisinopril and hydrochlorothiazide in setting of soft BP and GERRY Obesity Advised weight loss DVT prophylaxis-heparin Full code reason for continued hospitalization:ongoing diarrhea, close monitoring of kidney function Time Spent With Patient Time: Total time managing care of this patient today ____ minutes. Quality Stroke Does the patient have a stroke diagnosis?: No VTE Prior VTE?: No VTE Risk Level:: Medical - moderate - high VTE Device Contraindication: Treatment Not Indicated VTE Drug Contraindication: N/A - Med Ordered
[2023-04-19 14:59] VITALS: BP 127/57; PULSE 79; RESP 18; TEMP 37; O2SAT 98
--- NOTE | 2023-04-19 14:59 | PM.EVENT ---
Event Note Date of Service: 04/19/23 Event Note: GI consult dictated Diarrhea, improving per patient who is a vague historian. GI panel and c diff negative. O&P and stool WBC ordered. Imodium x1 now and q4h prn loose stools. My office will arrange outpatient colonoscopy after GERRY has resolved. Time Spent With Patient Time: Total time managing care of this patient today ____ minutes.
[2023-04-19 16:03] LABS: Glucose, Whole Blood 167 mg/dL (60-115)
[2023-04-19] MEDS: Insulin Lispro 100 UNIT/ML 3 ML VIAL SUBCUT (16:56)
[2023-04-19] MEDS: Loperamide HCl 2 MG CAPSULE PO (17:00)
[2023-04-19] MEDS: 0.9 % Sodium Chloride 1,000 ML 150 ML IVCONT (17:39)
--- NOTE | 2023-04-19 17:44 | PC.NURSE ---
Patient requested to take Loving cath out , RN verified with DR Tena and it was okay to remove the cath. Pt c/o a lot of discomfort from the catheter , also cath was leaking around the insertion site
[2023-04-19 19:18] VITALS: BP 133/67; PULSE 78; RESP 20; TEMP 37.1; O2SAT 98
[2023-04-19 20:12] LABS: Glucose, Whole Blood 104 mg/dL (60-115)
[2023-04-19] MEDS: Atorvastatin Calcium 80 MG TABLET PO (20:23)
[2023-04-19 23:17] VITALS: BP 132/72; PULSE 78; RESP 18; TEMP 36.6; O2SAT 99
--- NOTE | 2023-04-19 23:51 | PM.PNNEP ---
Subjective Subjective Date of Service: 04/19/23 Interval history: Seen and examied, eventsnoted Physical Exam Vital Signs: Vital Signs: Last Vital Signs Temp 97.8 F 04/19/23 23:17 Pulse 78 04/19/23 23:17 Resp 18 04/19/23 23:17 BP 132/72 04/19/23 23:17 Pulse Ox 99 04/19/23 23:17 O2 Del Method Room Air 04/19/23 23:17 BMI result Body Mass Index 38.9 Const: Other: Constitutional : Awake, interactive, not in distress Neck : Normal inspection, Supple Cardiovascular : RRR, no JVP, trace lower extremity edema Respiratory : good bilateral air entry, no crackles, wheezes or rhonchi Gastrointestinal: soft, lax, Normal bowel sounds, Non tender Skin : Warm, Dry Neurological : Alert & oriented to self and place, No focal deficit Objective Data Labs 04/19/23 06:35 04/19/23 06:35 Labs: Laboratory Results - last 24 hr 04/19/23 04/19/23 04/19/23 06:35 06:35 07:27 WBC 4.3 L RBC 2.68 L Hgb 9.1 L Hct 27.8 L MCV 103.7 H MCH 34.0 H MCHC 32.7 RDW 13.0 Plt Count 177 MPV 10.2 Absolute Nucleated RBC 0.000 Nucleated RBC % (auto) 0.0 Sodium 145 Potassium 4.5 Chloride 115 H Carbon Dioxide 19 L Anion Gap 16 BUN 102 H Creatinine 4.65 H* Estim Creat Clear Calc 20.3 Estimated GFR 13 POC Glucose 113 Random Glucose 123 H Calcium 7.6 L 04/19/23 04/19/23 04/19/23 11:13 15:52 20:08 WBC RBC Hgb Hct MCV MCH MCHC RDW Plt Count MPV Absolute Nucleated RBC Nucleated RBC % (auto) Sodium Potassium Chloride Carbon Dioxide Anion Gap BUN Creatinine Estim Creat Clear Calc Estimated GFR POC Glucose 129 H 167 H 104 Random Glucose Calcium Microbiology Microbiology Results: Microbiology 04/17/23 15:15 Urine Catheterized - Loving Catheter Urine Culture - Final No growth. Procedures Date of Service Date of Service: 04/19/23 Assessment & Plan Assessment and plan (1) GERRY (acute kidney injury): Status: Acute (2) Acute hyperkalemia: Status: Acute (3) Nausea vomiting and diarrhea: Status: Acute (4) Anemia, macrocytic: Status: Acute Plan 1. Oliguric --> Non-Oliguuric GERRY: c/w renal hypoperfsuiion from sever dehydration and effect of MELISSA/diuretic compounding the prob, given ther rate of renal recovery is not robust c/w component of ischemnic ATN good news is GERRY is recovering based on decr Scr 2. AGMA/NAGMA: d/t GERRY/diarrhea 3. Decr Hb: w/u in progress; dilutional playing a role BUT not the complete cause REC: no indication for HD at this time and it appears we have dodged that bullet; cont IVF and track renal func/UOP; anenia w/u Time Spent With Patient Time: Total time managing care of this patient today ____ minutes. Progress Note: Quality Stroke Does the patient have a stroke diagnosis?: No
[2023-04-20] MEDS: 0.9 % Sodium Chloride 1,000 ML 150 ML IVCONT (00:36)
[2023-04-20] MEDS: 0.9 % Sodium Chloride Flush 3 ML SYRINGE IVFLUSH (00:37)
[2023-04-20] MEDS: Heparin Sodium,Porcine 5,000 UNIT/ML VIAL 5000 UNIT SUBCUT ×3 (00:44→23:34)
--- NOTE | 2023-04-20 01:08 | CONS_ITS ---
DATE OF SERVICE: 04/19/2023 REFERRING PHYSICIAN: Mann Tena MD REASON FOR CONSULTATION: Diarrhea. HISTORY OF PRESENT ILLNESS: The patient is a 63-year-old man who was admitted to the hospital on April 17 with anorexia and diarrhea and found to have significant electrolyte abnormalities with acute renal failure. He is a vague historian and reports a 3-week history of diarrhea with loose nonbloody bowel movements occurring 1-3 times per day. He denies any suspect food ingestions or recent antibiotic usage. He did travel on a cruise around [place] and [place], and returned the night before admission. Since admission, he has had stool testing for C diff and an infectious panel which has been negative. He has never undergone colonoscopy. His intake and output summary reports 2 bowel movements over the past 24 hours. Stools have been described as loose by the patient and nursing. There has been no reported blood. PAST MEDICAL HISTORY: 1. Rheumatoid arthritis. 2. Diabetes mellitus. 3. Hypertension. 4. CVA. 5. Peripheral arterial disease. CURRENT MEDICATIONS: His current medication list is reviewed in the chart. ALLERGIES: THERE ARE NONE REPORTED. FAMILY HISTORY: This is reviewed with the patient and is noncontributory as far as any GI malignancy. SOCIAL HISTORY: He formerly smoked, but does not currently. He denies alcohol abuse. REVIEW OF SYSTEMS: SKIN: No pruritus. HEENT: Negative. CARDIOPULMONARY: No shortness of breath or chest pain. GASTROINTESTINAL: As above. GENITOURINARY: Negative. NEUROPSYCHIATRIC: Negative. PHYSICAL EXAMINATION: GENERAL: Pleasant male, lying in bed. VITAL SIGNS: Reviewed in electronic medical record and are stable. SKIN: Anicteric. HEENT: No scleral icterus. NECK: Without lymphadenopathy or thyromegaly. LUNGS: Clear. HEART: Regular rate and rhythm. S1, S2. No murmur. ABDOMEN: Soft without focal masses or tenderness. Bowel sounds are present. No organomegaly is noted. EXTREMITIES: Some mild edema. LABORATORY DATA: Reviewed. His renal function has improved since admission. He has been noted to be anemic but without microcytic indices. CT scanning from admission shows no colonic or small bowel abnormalities. IMPRESSION: Diarrhea. The etiology for his diarrhea is not clear. I doubt this is related to metformin, which has been held. There appears to be no acute infectious etiology. I would recommend obtaining stool for parasite testing and white blood cells. He should have colonoscopy, but this can be deferred until his renal function is stabilized. At that time, biopsies can be taken to rule out microscopic or collagenous colitis. This will be arranged as an outpatient. In the meantime, I would recommend treating him with antidiarrheals and these have been ordered. Thanks for asking me to see him. I will follow him in the hospital with you. MD ATUL Vargas/ROMULO / [id number] MTDD
[2023-04-20 03:29] VITALS: BP 130/61; PULSE 71; RESP 16; TEMP 36; O2SAT 98
[2023-04-20 06:57] LABS: Hematocrit 28.2 % (42.0-52.0); Hemoglobin 9.2 g/dl (14.0-18.0); Mean Corpuscular HGB Conc 32.6 g/dl (31.0-36.0); Mean Corpuscular Hemoglobin 34.2 pg (27.0-33.0); Mean Corpuscular Volume 104.8 fL (80.0-98.0); Mean Platelet Volume 10.2 fL (9.4-12.4); Platelet Count 152 X10*3/uL (160-400); Red Blood Count 2.69 X10*6/uL (4.60-5.80); Red Cell Distribution Width 12.9 % (11.0-16.0); White Blood Count 3.2 X10*3/uL (4.8-10.8)
[2023-04-20 07:12] LABS: Anion Gap 13 (12-20); Blood Urea Nitrogen 65 mg/dL (9-16); Calcium 7.4 mg/dL (8.4-10.2); Carbon Dioxide 21 mmol/L (22-29); Chloride 118 mmol/L (96-108); Estimated Glomerular Filt Rate 21; Glucose Fasting 113 mg/dL (60-99); Potassium 4.2 mmol/L (3.3-5.1); Sodium 148 mmol/L (135-145)
[2023-04-20 07:28] VITALS: BP 143/66; PULSE 79; RESP 20; TEMP 36.3; O2SAT 100
[2023-04-20 07:35] LABS: Glucose, Whole Blood 110 mg/dL (60-115)
[2023-04-20] MEDS: Hydroxychloroquine Sulfate 200 MG TABLET 400 MG PO (07:56)
[2023-04-20] MEDS: Sodium Bicarbonate 650 MG TABLET 1300 MG PO ×3 (07:56→20:54)
[2023-04-20] MEDS: Metoprolol Tartrate 12.5 MG HALFTAB PO ×2 (07:56→20:54)
[2023-04-20] MEDS: Folic Acid 1 MG TABLET 2 MG PO (07:56)
[2023-04-20] MEDS: Aspirin Enteric Coated 81 MG TABLET.DR PO (07:56)
[2023-04-20] MEDS: Sodium Chloride 0.45 % 1,000 ML 125 ML IVCONT ×3 (07:58→23:35)
--- NOTE | 2023-04-20 10:36 | P.PNNP_ITS ---
Subjective Subjective Date of Service: 04/20/23 Interval history: Seen and examied, events noted Physical Exam Vital Signs: Vital Signs: Last Vital Signs Temp 97.3 F 04/20/23 07:28 Pulse 79 04/20/23 07:28 Resp 20 04/20/23 07:28 BP 143/66 H 04/20/23 07:28 Pulse Ox 100 04/20/23 07:28 O2 Del Method Room Air 04/20/23 07:28 BMI result Body Mass Index 38.9 Const: Other: Constitutional : Awake, interactive, not in distress Neck : Normal inspection, Supple Cardiovascular : RRR, no JVP, trace lower extremity edema Respiratory : good bilateral air entry, no crackles, wheezes or rhonchi Gastrointestinal: soft, lax, Normal bowel sounds, Non tender Skin : Warm, Dry Neurological : Alert & oriented to self and place, No focal deficit Objective Data Labs 04/20/23 06:39 04/20/23 06:39 Labs: Laboratory Results - last 24 hr 04/19/23 04/19/23 04/19/23 11:13 15:52 20:08 WBC RBC Hgb Hct MCV MCH MCHC RDW Plt Count MPV Absolute Nucleated RBC Nucleated RBC % (auto) Sodium Potassium Chloride Carbon Dioxide Anion Gap BUN Creatinine Estim Creat Clear Calc Estimated GFR POC Glucose 129 H 167 H 104 Fasting Glucose Calcium 04/20/23 04/20/23 04/20/23 06:39 06:39 07:28 WBC 3.2 L RBC 2.69 L Hgb 9.2 L Hct 28.2 L MCV 104.8 H MCH 34.2 H MCHC 32.6 RDW 12.9 Plt Count 152 L MPV 10.2 Absolute Nucleated RBC 0.000 Nucleated RBC % (auto) 0.0 Sodium 148 H Potassium 4.2 Chloride 118 H Carbon Dioxide 21 L Anion Gap 13 BUN 65 H Creatinine 3.05 H Estim Creat Clear Calc 31.0 Estimated GFR 21 POC Glucose 110 Fasting Glucose 113 H Calcium 7.4 L Microbiology Microbiology Results: Microbiology 04/17/23 15:15 Urine Catheterized - Loving Catheter Urine Culture - Final No growth. Procedures Date of Service Date of Service: 04/20/23 Assessment & Plan Assessment and plan (1) GERRY (acute kidney injury): Status: Acute (2) Acute hyperkalemia: Status: Acute (3) Nausea vomiting and diarrhea: Status: Acute (4) Anemia, macrocytic: Status: Acute Plan 1. Oliguric --> Non-Oliguuric GERRY: c/w renal hypoperfsuiion from sever dehydration and effect of MELISSA/diuretic compounding the prob, given ther rate of renal recovery is not robust c/w component of ischemnic ATN good news is GERRY is recovering based on decr Scr 2. AGMA/NAGMA: resolving; d/t GERRY/diarrhea 3. Decr Hb: w/u in progress; dilutional playing a role BUT not the complete cause 4. HyperNa REC: no indication for HD at this time and it appears we have dodged that bullet; cont IVF and track renal func/UOP; anenia w/u; avoid Metformin and MELISSA- I; recheck renal labs in am as may be able to d/c IVF in am Time Spent With Patient Time: Total time managing care of this patient today ____ minutes. Progress Note: Quality Stroke Does the patient have a stroke diagnosis?: No
[2023-04-20 11:06] LABS: Glucose, Whole Blood 159 mg/dL (60-115)
[2023-04-20] MEDS: Insulin Lispro 100 UNIT/ML 3 ML VIAL SUBCUT (11:36)
[2023-04-20 11:49] VITALS: BP 120/61; PULSE 73; RESP 20; TEMP 36.7; O2SAT 98
--- NOTE | 2023-04-20 11:54 | PM.GIPN ---
Subjective Subjective Date of Service: 04/20/23 Interval History: feels ok tolerating diet without problems reports 2 bms yesterday and 1 today Critical Care Time (minutes): 0 Physical Exam Vital Signs: Vital Signs: Last Vital Signs Temp 97.3 F 04/20/23 07:28 Pulse 79 04/20/23 07:28 Resp 20 04/20/23 07:28 BP 143/66 H 04/20/23 07:28 Pulse Ox 100 04/20/23 07:28 O2 Del Method Room Air 04/20/23 07:28 BMI result Body Mass Index 38.9 GI: Other: abdomen is soft and nontender Objective Data Labs 04/20/23 06:39 04/20/23 06:39 Labs: Laboratory Results - last 24 hr 04/19/23 04/19/23 04/20/23 15:52 20:08 06:39 WBC 3.2 L RBC 2.69 L Hgb 9.2 L Hct 28.2 L MCV 104.8 H MCH 34.2 H MCHC 32.6 RDW 12.9 Plt Count 152 L MPV 10.2 Absolute Nucleated RBC 0.000 Nucleated RBC % (auto) 0.0 Sodium Potassium Chloride Carbon Dioxide Anion Gap BUN Creatinine Estim Creat Clear Calc Estimated GFR POC Glucose 167 H 104 Fasting Glucose Calcium 04/20/23 04/20/23 04/20/23 06:39 07:28 10:56 WBC RBC Hgb Hct MCV MCH MCHC RDW Plt Count MPV Absolute Nucleated RBC Nucleated RBC % (auto) Sodium 148 H Potassium 4.2 Chloride 118 H Carbon Dioxide 21 L Anion Gap 13 BUN 65 H Creatinine 3.05 H Estim Creat Clear Calc 31.0 Estimated GFR 21 POC Glucose 110 159 H Fasting Glucose 113 H Calcium 7.4 L Microbiology Microbiology Results: Microbiology 04/17/23 15:15 Urine Catheterized - Loving Catheter Urine Culture - Final No growth. Procedures Date of Service Date of Service: 04/20/23 Progress Note: A&P Time Spent With Patient Time: Total time managing care of this patient today ____ minutes. Quality Stroke Does the patient have a stroke diagnosis?: No VTE Prior VTE?: No VTE Risk Level:: Medical - moderate - high VTE Device Contraindication: Treatment Not Indicated VTE Drug Contraindication: N/A - Med Ordered
--- NOTE | 2023-04-20 11:59 | P.PNIM_ITS ---
Subjective Subjective Date of Service: 04/20/23 Interval History: diarrhea improving Physical Exam Vital Signs: Vital Signs: Last Vital Signs Temp 98.1 F 04/20/23 11:49 Pulse 73 04/20/23 11:49 Resp 20 04/20/23 11:49 BP 120/61 04/20/23 11:49 Pulse Ox 98 04/20/23 11:49 O2 Del Method Room Air 04/20/23 11:49 BMI result Body Mass Index 38.9 GI: Other: abdomen is soft and nontender Objective Data Active Medications Acetaminophen (Acetaminophen 325 Mg Tablet) 650 mg PO Q6H PRN PRN Reason: Pain, Mild (Pain Scale 1-3) Last Admin: 04/18/23 01:27 Dose: 650 mg Documented By: JOEY Aspirin (Aspirin Enteric Coated 81 Mg Tablet.) 81 mg PO DAILY [facility] Last Admin: 04/20/23 07:56 Dose: 81 mg Documented By: HENRI Atorvastatin Calcium (Atorvastatin Calcium 80 Mg Tablet) 80 mg PO BEDTIME [facility] Last Admin: 04/19/23 20:23 Dose: 80 mg Documented By: [place] Docusate Sodium (Docusate Sodium 100 Mg Capsule) 100 mg PO DAILY PRN PRN Reason: Constipation Folic Acid (Folic Acid 1 Mg Tablet) 2 mg PO DAILY [facility] Last Admin: 04/20/23 07:56 Dose: 2 mg Documented By: HENRI Glucose (Glucose Gel 15 Gm Gel..Gram.) 15 gm PO Q15M PRN; Protocol PRN Reason: per Hypoglycemia Standing Ord. Heparin Sodium (Porcine) (Heparin Sodium,Porcine 5,000 Unit/Ml Vial) 5,000 unit SUBCUT Q12H [facility] Last Admin: 04/20/23 00:44 Dose: 5,000 unit Documented By: SAMY Hydroxychloroquine Sulfate (Hydroxychloroquine Sulfate 200 Mg Tablet) 400 mg PO DAILY [facility] Last Admin: 04/20/23 07:56 Dose: 400 mg Documented By: HENRI Dextrose (D10) 250 mls @ 750 mls/hr IV Q15M PRN; Protocol PRN Reason: per Hypoglycemia Standing Ord. Sodium Chloride (Sodium Chloride 0.45 %) 1,000 mls @ 125 mls/hr IVCONT .Q8H [facility] Last Admin: 04/20/23 07:58 Dose: 125 mls/hr Documented By: HENRI Insulin Human Lispro (Insulin Lispro 100 Unit/Ml 3 Ml Vial) 0 unit SUBCUT QIDACHS [facility]; Protocol Last Admin: 04/20/23 11:36 Dose: 2 unit Documented By: HENRI Loperamide HCl (Loperamide Hcl 2 Mg Capsule) 2 mg PO Q4H PRN PRN Reason: Diarrhea Metoprolol Tartrate (Metoprolol Tartrate 12.5 Mg Halftab) 12.5 mg PO BID [facility]; Protocol Last Admin: 04/20/23 07:56 Dose: 12.5 mg Documented By: HENRI Ondansetron HCl (Ondansetron Hcl 4 Mg/2 Ml Vial) 4 mg IVPUSH Q8H PRN PRN Reason: Nausea and Vomiting Pharmacy Consult (Consult Rx Perform Med Rec) 1 each MISCELLANE ONCE PRN PRN Reason: Consult order Sodium Bicarbonate (Sodium Bicarbonate 650 Mg Tablet) 1,300 mg PO TID [facility] Last Admin: 04/20/23 07:56 Dose: 1,300 mg Documented By: HENRI Sodium Chloride (0.9 % Sodium Chloride Flush 3 Ml Syringe) 3 ml IVFLUSH QSHIFT [facility] Last Admin: 04/20/23 07:58 Dose: Not Given Documented By: HENRI Non-Admin Reason: IV Running Labs 04/20/23 06:39 04/20/23 06:39 Labs: Laboratory Results - last 24 hr 04/19/23 04/19/23 04/20/23 15:52 20:08 06:39 MCV 104.8 H MCH 34.2 H MCHC 32.6 RDW 12.9 Plt Count 152 L MPV 10.2 Absolute Nucleated RBC 0.000 Nucleated RBC % (auto) 0.0 Anion Gap Estim Creat Clear Calc Estimated GFR POC Glucose 167 H 104 Fasting Glucose Calcium 04/20/23 04/20/23 04/20/23 06:39 07:28 10:56 MCV MCH MCHC RDW Plt Count MPV Absolute Nucleated RBC Nucleated RBC % (auto) Anion Gap 13 Estim Creat Clear Calc 31.0 Estimated GFR 21 POC Glucose 110 159 H Fasting Glucose 113 H Calcium 7.4 L Assessment and Plan (1) GERRY (acute kidney injury): Status: Acute (2) Acute hyperkalemia: Status: Acute (3) Nausea vomiting and diarrhea: Status: Acute (4) Anemia, macrocytic: Status: Acute Plan 63M PMH of RA on hydroxychloroquine and methotrexate, non insulin dependent type 2 diabetes, htn, hld, and history CVA presented with diarrhea, confusion Acute kidney injury complicated by acute metabolic encephalopathy due to uremia- likely related to hypovolemia, continued metformin, lisinopril,, and hctz use Creat improving, non oliguric no metformin poisoning Continue IVF will change to 1/2ns due to hypernatremia Loving catheter dced Nephrology following, No emergent HD at this time Follow BMP Acute hyperkalemia resolved Follow labs Acute metabolic acidosis related to GERRY and uremia started PO NaHCO3 Acute diarrhea stool studies negative for infection diarrhea improving with antidiarrheals gi appreciated, follow up wbc, ova and parasite, outpatient follow up Acute blood loss anemia- likely hemorrhoidal bleed secondary to diarrhea Hb dropped to 8.7 , likely from hydration, no obvious source of bleeding identified No prev labs available, could have baseline chronic macrocytic anemia. Folic acid and vitamin B12 levels normal H/H above transfusion threshold of 7 follow CBC RA hold methotrexate, continue hydroxychloroquine hypertension improved hold amlodipine, lisinopril and hydrochlorothiazide in setting of soft BP and GERRY Obesity Advised weight loss DVT prophylaxis-heparin Full code reason for continued hospitalization:ivf for hypernatremia Time Spent With Patient Time: Total time managing care of this patient today ____ minutes. Quality Stroke Does the patient have a stroke diagnosis?: No VTE Prior VTE?: No VTE Risk Level:: Medical - moderate - high VTE Device Contraindication: Treatment Not Indicated VTE Drug Contraindication: N/A - Med Ordered
[2023-04-20 15:52] VITALS: BP 123/58; PULSE 70; RESP 18; TEMP 36.9; O2SAT 99
[2023-04-20 16:18] LABS: Glucose, Whole Blood 110 mg/dL (60-115)
[2023-04-20 19:22] VITALS: BP 125/59; PULSE 77; RESP 18; TEMP 36.4; O2SAT 96
[2023-04-20 20:49] LABS: Glucose, Whole Blood 143 mg/dL (60-115)
[2023-04-20] MEDS: Atorvastatin Calcium 80 MG TABLET PO (20:54)
[2023-04-20 23:26] VITALS: BP 106/53; PULSE 63; RESP 18; TEMP 36.5; O2SAT 95
[2023-04-21 02:53] VITALS: BP 110/56; PULSE 80; RESP 18; TEMP 36.8; O2SAT 95
[2023-04-21 06:32] LABS: Hematocrit 26.5 % (42.0-52.0); Hemoglobin 8.8 g/dl (14.0-18.0); Mean Corpuscular HGB Conc 33.2 g/dl (31.0-36.0); Mean Corpuscular Hemoglobin 34.8 pg (27.0-33.0); Mean Corpuscular Volume 104.7 fL (80.0-98.0); Mean Platelet Volume 10.1 fL (9.4-12.4); Platelet Count 145 X10*3/uL (160-400); Red Blood Count 2.53 X10*6/uL (4.60-5.80); Red Cell Distribution Width 12.8 % (11.0-16.0); White Blood Count 4.3 X10*3/uL (4.8-10.8)
[2023-04-21 07:06] LABS: Anion Gap 9 (12-20); Blood Urea Nitrogen 41 mg/dL (9-16); Calcium 7.3 mg/dL (8.4-10.2); Carbon Dioxide 25 mmol/L (22-29); Chloride 112 mmol/L (96-108); Estimated Glomerular Filt Rate 29; Glucose Fasting 122 mg/dL (60-99); Sodium 142 mmol/L (135-145)
[2023-04-21 07:23] LABS: Glucose, Whole Blood 122 mg/dL (60-115)
[2023-04-21 07:46] VITALS: BP 119/59; PULSE 73; RESP 20; TEMP 37.2; O2SAT 100
[2023-04-21] MEDS: Metoprolol Tartrate 12.5 MG HALFTAB PO (08:22)
[2023-04-21] MEDS: Hydroxychloroquine Sulfate 200 MG TABLET 400 MG PO (08:22)
[2023-04-21] MEDS: Folic Acid 1 MG TABLET 2 MG PO (08:22)
[2023-04-21] MEDS: Aspirin Enteric Coated 81 MG TABLET.DR PO (08:22)
[2023-04-21] MEDS: 0.9 % Sodium Chloride Flush 3 ML SYRINGE IVFLUSH (08:22)
[2023-04-21] MEDS: Sodium Bicarbonate 650 MG TABLET 1300 MG PO (08:23)
--- NOTE | 2023-04-21 09:18 | PM.DS ---
DS: Providers Provider Date of Service: 04/21/23 Date of admission: 04/17/23 14:15 Primary care physician: VIRGINIA Reynoso Consults: 04/17/23 12:27 Consult to Nephrology Stat Consulting Provider: Hammad Portillo Reason for consultation: ARF 04/17/23 14:15 Consult to Nephrology Routine Consulting Provider: Hammad Portillo Reason for consultation: GERRY, uremia 04/19/23 12:26 Consult to Gastroenterology Routine Consulting Provider: Ramesh Bauer Reason for consultation: prolonged acute diarrhea, infectious studies negative DS: Diagnosis Discharge Diagnosis (1) GERRY (acute kidney injury): Status: Acute (2) Acute hyperkalemia: Status: Acute (3) Nausea vomiting and diarrhea: Status: Acute (4) Anemia, macrocytic: Status: Acute DS: Summary Hospital Course Hospital Course: [facility]: 63 year old male with history of RA on hydroxychloroquine and methotrexate, non insulin dependent type 2 diabetes, htn, hld, and history CVA presented to ED for evaluation of nausea, diarrhea and anorexia ongoing for about 10 days. Pt was recently in [place] for 7 days followed by a cruise around [place] and returned last night. Was seen on the ship was was told he had sea sickness . Has not been able to tolerate much orally since symptom onset. Has no vomiting but does endorse dry heaves. Admits to copious diarrhea now with BRBPR. No melena. There is diffuse abdominal discomfort. No fevers or chills. None of those who were with him on the trip have similar symptoms. On arrival, blood pressures soft, vitals otherwise stable. Ny hypotension. Mild leukocytosis 10.9. H/H 11.0/33.3%. Creat 9.40, DUN >125, K 6.4, Cl 110, bicarb 10, AG 123. Treated with IV bicarb and 2L IVF. He also received 10 units regular insulin with D10, calcium gluconate, and albuterol for the hyperkalemia. Repeat chemistry showed improvement in creat to 8.53, BUN still elevated at 157, K improved to 5.3, hyperchloremic at 113, Na 140. AG closed. CT abd/pelvis showing hepatic steatosis and splenomegaly, bilateral nephrolithiasis without hydroureternephrosis and atrophic left kidney and nonspecific mesenteric haziness and large amt mesenteric fat disposition among other chronic findings. Initially concern for metformin poisoning per nephrology, but lactic acid 0.7. hospital course: patient was admitted for gerry complicated by acute metabolic encephalopathy, ?due to uremia- likely related to hypovolemia, continued metformin, lisinopril,, and hctz use. patients bp meds were held, given ivf, creatinine slowly improved, non oliguric, creatinine is 2.31 at discharge. should be followed up. had hypernatremia, resolved after hypotonic fluids. acute hyperkalemia resolved. acute metabolic acidosis resolved after bicarb given. patient's diarrhia has slowed down by time of discharge, can continue imodium as needed and follow up with gi if recurs, stool pcr negative. for acute blood loss anemia due to hemorrhoidal bleed, hgb stabilized. for RA will restart mtx and plaquenil on dc. for htn, bp meds held. for obesity weight loss recommended. patient feeling better will be discharged home. Time Spent with Patient Time attestation: Total time managing care of this patient today ____ minutes. Discharge coordination time: Greater than 30 minutes Quality: Safe Use of Opioids Does Pt have an Active Cancer Diagnosis on the Problem List?: No Quality: Stroke Does the patient have a stroke diagnosis?: No Physical Exam Vital Signs: Vital Signs: Last Vital Signs Temp 98.9 F 04/21/23 07:46 Pulse 73 04/21/23 07:46 Resp 20 04/21/23 07:46 BP 119/59 L 04/21/23 07:46 Pulse Ox 100 04/21/23 07:46 O2 Del Method Room Air 04/21/23 07:46 BMI result Body Mass Index 38.9 GI: Other: abdomen is soft and nontender DS: Data Data Completed and Pending Labs on day of discharge: Laboratory Results - last 24 hr 04/20/23 04/20/23 04/20/23 10:56 16:09 20:45 WBC RBC Hgb Hct MCV MCH MCHC RDW Plt Count MPV Absolute Nucleated RBC Nucleated RBC % (auto) Sodium Potassium Chloride Carbon Dioxide Anion Gap BUN Creatinine Estim Creat Clear Calc Estimated GFR POC Glucose 159 H 110 143 H Fasting Glucose Calcium 04/21/23 04/21/23 04/21/23 06:24 06:24 07:17 WBC 4.3 L RBC 2.53 L Hgb 8.8 L Hct 26.5 L MCV 104.7 H MCH 34.8 H MCHC 33.2 RDW 12.8 Plt Count 145 L MPV 10.1 Absolute Nucleated RBC 0.000 Nucleated RBC % (auto) 0.0 Sodium 142 Potassium 4.0 Chloride 112 H Carbon Dioxide 25 Anion Gap 9 L BUN 41 H Creatinine 2.31 H Estim Creat Clear Calc 41.0 Estimated GFR 29 POC Glucose 122 H Fasting Glucose 122 H Calcium 7.3 L Discharge Plan Discharge Anticipated Discharge Date/Time: 04/21/23 09:15 Patient Disposition: Home, Self-Care Discharge Diagnosis: gerry Referrals: Ramesh Bauer [Physician] - 1 Week Estephania Carey PA [Primary Care Provider] - 1 Week Hammad Portillo MD [Physician] - 1 Week Discharge Medications: New loperamide 2 mg Capsule 2 mg PO Q4H PRN (Reason: Diarrhea) Qty: 0 0RF metoprolol tartrate 25 mg tablet 12.5 mg PO BID Qty: 30 0RF Continued atorvastatin 80 mg tablet 80 mg PO DAILY aspirin 81 mg tablet,delayed release (DR/EC) 81 mg PO DAILY methotrexate sodium 2.5 mg tablet 17.5 mg PO MO@1900 Rx Instructions: Monday metformin 1,000 mg tablet 1,000 mg PO BID folic acid 1 mg tablet 2 mg PO DAILY hydroxychloroquine 200 mg tablet 400 mg PO DAILY Discontinued lisinopril 20 mg tablet 20 mg PO DAILY amlodipine 10 mg tablet 10 mg PO DAILY hydrochlorothiazide 25 mg tablet 25 mg PO DAILY Discharge Orders: Discharge Order (Routine); Ordered 04/21/23 Ordered By: Mann Tena Diet: Advance to usual diet Activity on Discharge: As tolerated Stand Alone Forms: Patient Portal Discharge page Care Plan Goals: recovery Health Concerns: gerry Plan of Treatment: follow up pcp and nephrology and gi, repeat labs next week, imodium as needed Assessment: see above
--- NOTE | 2023-04-21 09:39 | MHC.CM.PN ---
PT MEDICALLY CLEARED FOR D/C HOME SELF-CARE W/SISTER FOR TRANSPORT
[2023-04-21 11:31] LABS: Glucose, Whole Blood 120 mg/dL (60-115)
== END 2023-04-21 13:56 | disposition home or self-care (01) | DRG 469 ==
LOC: HO.ED 13:24 → HO.EDOVER 14:59 → HO.IMC 22:21
PROVIDERS: Internal Medicine Nephrology; Student in an Organized Health Care Education/Training Program; Admitting Provider Physician Assistant; Emergency Provider Emergency Medicine; PCP Physician Assistant; Visit Provider Internal Medicine
DX: N17.0 Acute kidney failure with tubular necrosis (principal); G92.8 Other toxic encephalopathy; E87.21 Acute metabolic acidosis; D62 Acute posthemorrhagic anemia; E11.51 Type 2 diabetes mellitus with diabetic peripheral angiopathy without gangrene; E86.0 Dehydration; K64.9 Unspecified hemorrhoids; N26.1 Atrophy of kidney (terminal); E66.9 Obesity, unspecified; Z68.38 Body mass index [BMI] 38.0-38.9, adult; D53.9 Nutritional anemia, unspecified; E11.9 Type 2 diabetes mellitus without complications; E86.1 Hypovolemia; E87.5 Hyperkalemia; M06.9 Rheumatoid arthritis, unspecified; Z79.82 Long term (current) use of aspirin; Z79.84 Long term (current) use of oral hypoglycemic drugs; Z79.899 Other long term (current) drug therapy
CPT/HCPCS: 36415; 74176; 80048; 80051; 80053; 80307; 81001; 82140; 82550; 82607; 82746; 82947; 83605; 83735; 83930; 84100; 84443; 85025; 85027; 85610; 85730; 87086; 87493; 87507; 93005; 94640; 99285; C1758; J0613; J1643; J2405

== ENCOUNTER 2023-05-22 14:00 | Outpatient (REF) | payer MEDICAID, SELFPAY ==
--- NOTE | 2023-05-22 14:31 | MHC.AU.HA3 ---
Hearing Instrument Follow-Up- Binaural Date of Visit: 05/22/23 Right Ear: Haider, , Color, Serial Number: Cara Gonzales [id number], [id number], black Collections Assistant Repair Warranty: 02/22/2025 Collections Assistant Loss and Damage Warranty: 02/22/2025 Battery Size: Rechargeable Immigration Manager/Slim Tube: TRS lock tubing Earmold/Dome/CShell/SlimTip:half shell ear mold Dispensed By: Steve Russo Date of Fittin11/25/2021 Left Ear: Haider, , Color, Serial Number: Cara Gonzales [id number], [id number], black Collections Assistant Repair Warranty: 02/22/2025 Collections Assistant Loss and Damage Warranty: 02/22/2025 Battery Size: Rechargeable Immigration Manager/Slim Tube: TRS lock tubing Earmold/Dome/CShell/SlimTip: half shell ear mold Dispensed By: Steve Russo Date of Fittin11/25/2021 Follow-Up Summary: Yinka returned for a tubing change. He also reported feedback from both hearing aids and tone hooks continually spin. Cleaned both hearing aids and ear molds. Replaced tubing and both tone hooks. A listening check demonstrated that the hearing aids are in good working order. Initially thought feedback was due to improper insertion of ear molds. However, Yinka was able to successfully insert both hearing aids in office. Performed feedback infection control manager as it was not previously run and no more feedback noted in office. Recommendations:Please contact our clinic with any questions or concerns. Tubing change scheduled for October 2023 Diagnosis Code(s): Primary Diagnosis: H90.3 Bilateral Sensorineural Hearing Loss Signature: Provider: Chris Frost, [facility]
== END 2023-05-22 14:01 | disposition home or self-care (01) ==
LOC: HO.HAP 14:00
PROVIDERS: Visit Provider Physician Assistant
DX: Z46.1 Encounter for fitting and adjustment of hearing aid (principal); H90.3 Sensorineural hearing loss, bilateral
CPT/HCPCS: 92593; 99499

== ENCOUNTER 2023-10-13 11:19 | Outpatient (REF) | payer MEDICAID, SELFPAY | END 2023-10-13 11:20 | disposition home or self-care (01) | LOC: HO.HAP 11:19 | PROVIDERS: Visit Provider Family Medicine | DX: Z46.1 Encounter for fitting and adjustment of hearing aid (principal); H90.3 Sensorineural hearing loss, bilateral | CPT/HCPCS: 92593; 99499 ==

== ENCOUNTER 2024-04-17 08:22 | Outpatient (REF) | payer MEDICAID, SELFPAY ==
--- NOTE | 2024-04-17 08:49 | MHC.AU.HA3 ---
Hearing Instrument Follow-Up- Binaural Date of Visit: 04/17/24 Right Ear: Haider, Model, Color, Serial Number: Cara Gonzales [id number] SN: [id number] Color: Black In Flight Refueling Operator Repair Warranty: 02/22/2025 In Flight Refueling Operator Loss and Damage Warranty: 02/22/2025 Battery Size: Rechargeable Snow Technician/Slim Tube: TRS lock tubing Earmold/Dome/CShell/SlimTip:MicroSonic M35 Canal shell Dispensed By: Steve Russo Date of Fittin11/25/2021 Left Ear: Haider, Model, Color, Serial Number: Cara Gonzales [id number] SN: [id number] Color: Black In Flight Refueling Operator Repair Warranty: 02/22/2025 In Flight Refueling Operator Loss and Damage Warranty: 02/22/2025 Battery Size: Rechargeable Snow Technician/Slim Tube: TRS lock tubing Earmold/Dome/CShell/SlimTip: MicroSonic M35 Canal shell Dispensed By: Steve Russo Date of Fittin11/25/2021 Follow-Up Summary: Routine hearing aid maintenance. Cleaned hearing aids and ear molds. Replaced tubing. Vacuumed microphones. Ran through dehumidifier. A listening check demonstrated that the hearing aids are in good working order. Yinka still not wearing the hearing aids consistently. Reportedly physical fit and sound quality good, he notices benefit while wearing them, he just chooses not to. Strongly encouraged more consistent use. Recommendations: Hearing instrument follow-up or maintenance as needed. Please contact our clinic with any questions or concerns. Diagnosis Code(s): Primary Diagnosis: H90.3 Bilateral Sensorineural Hearing Loss Signature: Provider: Chris Frost, [facility]
== END 2024-04-17 08:23 | disposition home or self-care (01) ==
LOC: HO.HAP 08:22
PROVIDERS: Visit Provider Physician Assistant
DX: Z46.1 Encounter for fitting and adjustment of hearing aid (principal); H90.3 Sensorineural hearing loss, bilateral
CPT/HCPCS: 92593; 99499